=== PATIENT | female | born 1945 | race Caucasian/White ===

== ENCOUNTER 2022-11-20 13:02 | Oncology outpatient (recurring) (ONCR) | payer MEDICARE, MEDICAID, SELFPAY ==
--- NOTE | 2022-11-22 17:05 | N.ONRAD NP_ITS ---
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 Radiotherapy to date: Summary > No prior radiation therapy. Chief Complaint / History of Present Illness: She initially had itchiness in the vulvar region felt to be a yeast infection. Some improvement with topical treatment. Then developed an asymptomatic mass. Seen by Dr Mullins 10/02/2022 5-6 cm ulcerated lesion extending from right labia major up and over clitoral lucio and abutting the left labia minora. Punch biopsy obtained. (Results not yet sent ). PET/CT 10/06/2023 Increased activity level corresponding to soft tissue thickening involving the vulva. Bilateral inguinal adenopathy right 22 mm max size, left 11 mm max size c/w metastatic disease. Partial vulvectomy and bilateral inguinal LN dissection 10/24/2022. Pathology Site: superior vulva HPV independent poorly differentiated squamous cell carcinoma 4.5 cm maximal size. 12 m invasion. Involved peripheral margin at 9:00. 1 of 3 right and 2 of 7 left inguinal nodes involved. She is recovering well post operatively. She is slowing gaining her strength . She has not yet resumed her house work. However she still feels weak and tired. She would like another 3 to 4 weeks to continue her recovery before embarking on any additional treatment. Bowel and bladder function are good. Perineal discharge has nearly resolved. Current Medications: Lisinopril, meloxicam, omeprazole Allergies: NKDA Medical History: No history of collagen vascular disease. No previous radiation therapy. Surgical History: Family History: Brother with history of prostate cancer. Social History: 59 years. 4 children. Non-smoker and non-drinker. Lifelong goat farmer. Living independently with . Current Complaints / Review of Systems: . Vital Signs: Performed on 11/20/2022 2:35 PM BMI - 33.106 kg/m2 (high), Height - 62 in, Weight - 181.0 lbs, Temperature - 98 f, Pulse - 62 /min, Respiration - 18 /min, O2 Sat - 97 %, Pain - 0, Fatigue - 2 and BP - 149/ 85 mm(hg)(high/). Physical Exam: Alert in NAD. No cervical or supraclavicular adenopathy. Inguinal incisions well healed inguinal areas supple with no skin tensioning with no masses. Vulvar region closed with no skin tensioning and healing well. 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 Involved nodes and lateral margin. Agree with post op radiation to primary resection bed and inguinal and pelvic brissa regions. Plan on 50 resection bed and 40 to 45 Gy to brissa aponte with weekly CDDP. To simplify her treatment she would like chemo to be given here as well. We will ask Dr. Hoyt and his colleagues to assist with the administration of cisplatin. Signed by: 11/22/2022 5:03:03 PM <<Signature on File>> Time spent with patient: CPT Code: CPT Code:
== END 2022-12-01 23:59 | disposition home or self-care (01) ==
PROVIDERS: PCP Internal Medicine; Visit Provider Radiology Radiation Oncology
DX: C51.8 Malignant neoplasm of overlapping sites of vulva (principal); C77.4 Secondary and unspecified malignant neoplasm of inguinal and lower limb lymph nodes; Z53.9 Procedure and treatment not carried out, unspecified reason
CPT/HCPCS: 99205

== ENCOUNTER → 2023-01-17 09:13 | Day surgery (SDC) | payer MEDICARE, MEDICAID, SELFPAY ==
[2023-01-17 09:25] VITALS: BP 175/94; PULSE 92; RESP 18; TEMP 36.1; O2SAT 96; BMI 32.5
--- NOTE | 2023-01-17 10:58 | XR_ITS ---
WS: [id number] Exam: XR chest 1V portable [id number] Date/Time of Exam: 01/17/2023 11:02 AM Reason For Exam: post picc Exam: XR chest 1V portable [id number] Date/Time of Exam: 01/17/2023 11:02 AM Reason For Exam: post picc No priors. Right-sided PICC line has been placed and ends at the cavoatrial junction. The lungs are fully expand ed. No consolidating infiltrates. Unremarkable cardiomediastinal silhouette. No pleural effusions. Bladimir ny structures are intact. Degenerative change of the RIGHT shoulder. IMPRESSION: 1. No acute cardiopulmonary process. 2. Right-sided PICC line ending at the cavoatrial junction.
== END ==
PROVIDERS: PCP Family Medicine; Visit Provider Internal Medicine Medical Oncology
DX: Z45.2 Encounter for adjustment and management of vascular access device (principal)
CPT/HCPCS: 36573; 71045

== ENCOUNTER 2023-01-29 09:41 | Oncology outpatient (recurring) (ONCR) | payer MEDICARE, MEDICAID, SELFPAY ==
--- NOTE | 2023-01-17 08:56 | ONCRAD EPV_ITS ---
Radiation Oncology Established Patient Visit Patient: Naveed Scott [id number] : 1945> Age: 77> Sex: Female> Dictated by: Tyron Govea Date of Service: 01/15/2023 Referring Physician(s) : Corrine Gibbs MD Diagnosis: Vulva cancer, ST IIIB (T1B, N2B, M0) squamous cell carcinoma of the vulva s/p resection and inguinal LN dissection 10/24/2022 Radiotherapy to Date: none Current History: Currently doing well. Bowel and bladder function are good. Stools are slow and do occur daily. Energy improving. Active at home with daily chores. Still has a perineal yeast infection trated with Diflucan, Nystatin and now Mycelex. Current Medications: AmLODIPine Besylate, lidocaine-Prilocaine, lisinopril, meloxicam, omeprazole. Allergies: NKDA Current Complaints / Review of Systems: . Vital Signs: Performed on 01/15/2023 12:56 PM BMI - 32.63 kg/m2 (high), Height - 62 in, Weight - 178.4 lbs, Temperature - 98.1 f, Pulse - 72 /min, Respiration - 16 /min, O2 Sat - 97 %, Pain - 0, Fatigue - 6 and BP - 152/ 83 mm(hg)(high/). Physical Exam: General: Alert and oriented x 3. No acute distress. HEENT: Normocephalic, atraumatic. NECK: Supple without supraclavicular or jugular lymphadenopathy. ABDOMEN: Soft, nontender, nondistended without masses or organomegaly. Bowell sounds are present. EXTREMITIES: No peripheral edema is identified. Limited motor and sensory examination are grossly intact and symmetric bilaterally. Inguinal incisions well healed bilaterally. No underlying palpable adenopathy. Faint white coating over post operative vulvar surfaces. No visible incisions seen. No other mucosal lesions seen. Performance Status: 0 - 1 Lab: None pending. Pathology: see consult note. Imaging: see consult note Impression: Resected St IIIB (T1b, N2b, M0) squamous cell carcinoma vulva s/p resection. Involved peripheral 9 o???clock margin and bilateral inguinal lymph nodes. Agree with need for post operative radiation and chemo covering primary resection bed, inguinal and inferior pelvic brissa regions. Signed by: 01/17/2023 8:55:06 AM <<Signature on File>> Time spent with patient: CPT Code: CPT Code:
[2023-01-21 09:56] LABS: Basophils % 0.4 %; Eosinophils # 0.4 10^3/uL (0.0-0.8); Eosinophils % 5.6 %; Hematocrit 40.5 % (36-47); Lymphocytes # 1.3 10^3/uL (0.8-4.8); Lymphocytes % 19.8 %; Mean Corpuscular HGB Conc 32.8 g/dL (30-55); Mean Corpuscular Hemoglobin 30.3 pg (27-33); Mean Corpuscular Volume 92.3 fl (85-98); Mean Platelet Volume 9.7 fL (7.4-10.4); Monocytes # 0.6 10^3/uL (0.2-0.9); Monocytes % 9.5 %; Neutrophils # 4.35 10^3/uL (1.8-7.7); Neutrophils % 64.4 %; Nucleated Red Blood Cells % 0 %; Platelet Count 249 10^3/cmm (157-399); Red Blood Count 4.39 10^6/uL (3.85-5.65); Red Cell Distribution Width 13.3 % (12.1-15.1); White Blood Count 6.76 10^3/uL (3.29-11.43)
[2023-01-21 10:10] VITALS: BP 148/80; PULSE 86; O2SAT 99
[2023-01-21 10:11] LABS: Alanine Aminotransferase 12 U/L (0-33); Albumin Level 3.9 g/dL (3.5-5.2); Alkaline Phosphatase 71 U/L (35-105); Blood Urea Nitrogen 18 mg/dL (8-23); Calcium 9.4 mg/dL (8.5-10.5); Carbon Dioxide 26 mmol/L (22-29); Chloride 103 mmol/L (98-107); Globulin 3.5 g/dL (1.3-4.6); Glucose 107 mg/dL (65-115); Osmolality Calculated 290 mOsm/kg (285-295); Sodium 139 mmol/L (136-145); Total Bilirubin 0.5 mg/dL (0.15-1.2); Total Protein 7.4 g/dL (6.6-8.7)
[2023-01-21 10:32] LABS: Anion Gap 14.4 (5-19); Aspartate Amino Transferase 17 U/L (0-32); Potassium 4.4 mmol/L (3.5-5.1)
[2023-01-21] MEDS: sodium chloride 0.9% 250 ML 75 ML IV (11:32)
[2023-01-21] MEDS: diphenhydrAMINE 50 mg/mL SDV 1mL 25 MG IVP (11:34)
[2023-01-21] MEDS: famotidine 20 mg/2 mL INJ IVP (11:37)
[2023-01-21] MEDS: palonosetron 0.25 mg/5 mL SDV IVP (11:41)
[2023-01-21] MEDS: fosaprepitant 150 MG in sodium chloride 0.9% 150 ML 300 MG IV (11:43)
[2023-01-21] MEDS: OLANZapine 5 mg TABLET PO (11:45)
[2023-01-21] MEDS: FUROsemide 10 mg/mL SDV 2mL 20 MG IVP (14:03)
[2023-01-21] MEDS: potassium chloride 20 MEQ in sodium chloride 0.9% 500 ML 500 MEQ IV (14:08)
[2023-01-21 15:19] VITALS: BP 144/77; PULSE 88; TEMP 35.8; O2SAT 91
--- NOTE | 2023-01-23 10:54 | ONCRAD TMN_ITS ---
Radiation Oncology Weekly Treatment Management Patient: Naveed Carter MR#: [id number] : 1945> Attending Physician: Braulio Hernández Date of Service: 01/23/2023 Referring Physician(s) : Diagnosis: C51.8 - Malignant neoplasm of overlapping sites of vulva, Diagnosed 10/24/2022 (Active) Radiotherapy to date: Course: Pelvis 2022, Treatment Site: Pelvis 2022, Ref. ID: [id number], Energy: 15X, Dose/Fx (cGy): 190, #Fx: 3 / 25, Dose Correction (cGy): 0, Total Dose (cGy): 570, Start Date: 01/21/2023, Elapsed Days: 2 Reason for visit: The patient is being seen today as part of their regularly scheduled weekly on treatment visits to assess for acute toxicities from radiotherapy. Review of Systems: She has tolerated the first 3 treatments well. She has no complaints regarding the inguinal areas or vulvar area. No bladder dysfunction. Bowel movements are normal. No problems with pain. Her performance status has improved since she was originally seen. She does not describe any lymphedema, but she states her thighs have felt slightly puffy ever since surgery. Vital Signs: Performed on 01/23/2023 10:13 AM BMI - 33.069 kg/m2 (high), Height - 62 in, Weight - 180.8 lbs, Temperature - 97.2 f, Pulse - 60 /min, Respiration - 18 /min, O2 Sat - 94 % (low), Pain - 0, Fatigue - 0 and BP - 150/ 68 mm(hg)(high/). Physical Exam: Alert, oriented, no acute distress. No edema of the lower extremities. Imaging: Radiation therapy imaging related to accurate target localization (i.e. KV, MV and CBCT) was reviewed. Appropriate changes, if any, were made to ensure treatment accuracy. Plan: Continue treatment according to plan. She is receiving concomitant chemotherapy. She sees Dr. Gibbs in late March 2023. Signed by: Braulio Hernández 01/23/2023 10:53:05 AM
[2023-01-28 10:57] VITALS: BP 139/76; PULSE 74; RESP 16; TEMP 37.2; O2SAT 94
[2023-01-28 11:10] LABS: Basophils % 0.5 %; Eosinophils # 0.4 10^3/uL (0.0-0.8); Eosinophils % 5.1 %; Hematocrit 39.7 % (36-47); Lymphocytes # 1.3 10^3/uL (0.8-4.8); Lymphocytes % 15.3 %; Mean Corpuscular HGB Conc 32.5 g/dL (30-55); Mean Corpuscular Hemoglobin 30.4 pg (27-33); Mean Corpuscular Volume 93.6 fl (85-98); Mean Platelet Volume 9.8 fL (7.4-10.4); Monocytes # 0.7 10^3/uL (0.2-0.9); Monocytes % 8.4 %; Neutrophils % 69.8 %; Nucleated Red Blood Cells % 0 %; Platelet Count 251 10^3/cmm (157-399); Red Blood Count 4.24 10^6/uL (3.85-5.65); Red Cell Distribution Width 13.2 % (12.1-15.1); White Blood Count 8.17 10^3/uL (3.29-11.43)
[2023-01-28 11:32] LABS: Alanine Aminotransferase 12 U/L (0-33); Albumin Level 3.8 g/dL (3.5-5.2); Alkaline Phosphatase 67 U/L (35-105); Blood Urea Nitrogen 17 mg/dL (8-23); Calcium 9.2 mg/dL (8.5-10.5); Carbon Dioxide 27 mmol/L (22-29); Chloride 101 mmol/L (98-107); Creatinine Clr Calc Pharmacy 58.1739; Globulin 3.1 g/dL (1.3-4.6); Glucose 96 mg/dL (65-115); Osmolality Calculated 285 mOsm/kg (285-295); Sodium 137 mmol/L (136-145); Total Bilirubin 0.4 mg/dL (0.15-1.2); Total Protein 6.9 g/dL (6.6-8.7)
[2023-01-28 12:40] LABS: Anion Gap 13.2 (5-19); Aspartate Amino Transferase 16 U/L (0-32); Potassium 4.2 mmol/L (3.5-5.1)
[2023-01-28] MEDS: diphenhydrAMINE 50 mg/mL SDV 1mL 25 MG IVP (13:05)
[2023-01-28] MEDS: sodium chloride 0.9% 250 ML 75 ML IV (13:05)
[2023-01-28] MEDS: famotidine 20 mg/2 mL INJ IVP (13:09)
[2023-01-28] MEDS: palonosetron 0.25 mg/5 mL SDV IVP (13:12)
[2023-01-28] MEDS: OLANZapine 5 mg TABLET PO (13:14)
[2023-01-28] MEDS: fosaprepitant 150 MG in sodium chloride 0.9% 150 ML 300 MG IV (14:02)
[2023-01-28] MEDS: FUROsemide 10 mg/mL SDV 2mL 20 MG IVP (15:48)
[2023-01-28] MEDS: potassium chloride 20 MEQ in sodium chloride 0.9% 500 ML 500 MEQ IV (16:03)
[2023-01-28 17:02] VITALS: BP 146/87; PULSE 75; RESP 16; TEMP 36.5; O2SAT 95
--- NOTE | 2023-01-29 10:55 | ONCRAD TMN_ITS ---
Radiation Oncology Weekly Treatment Management Patient: Sonia Lucio MR#: [id number] : 1945 Attending Physician: Donis Chapman Date of Service: 01/29/2023 Referring Physician(s) : Malignant neoplasm of overlapping sites of vulva, diagnosed 10/24/2022 Diagnosis: C51.8 - Malignant neoplasm of overlapping sites of vulva, Diagnosed 10/24/2022 (Active) Radiotherapy to date: Course: Pelvis 2022, Treatment Site: Pelvis 2022, Ref. ID: [id number], Energy: 15X, Dose/Fx (cGy): 190, #Fx: , Dose Correction (cGy): 0, Total Dose (cGy): 950, Start Date: 01/21/2023, Elapsed Days: 8 Reason for visit: The patient is being seen today as part of their regularly scheduled weekly on treatment visits to assess for acute toxicities from radiotherapy. Review of Systems: Patient denies dysuria, urgency, or frequency. She has no complaints of diarrhea, constipation, or changes in her bowel habits. She is receiving chemotherapy and denies side effects of chemotherapy. Vital Signs: Performed on 01/29/2023 9:57 AM BMI - 32.996 kg/m2 (high), Height - 62 in, Weight - 180.4 lbs, Temperature - 98 f, Pulse - 73 /min, Respiration - 16 /min, O2 Sat - 99 %, Pain - 0, Fatigue - 0 and BP - 148/ 72 mm(hg)(high/). Physical Exam: Alert and oriented female appearing her stated age. Patient ambulatory without assistance. Imaging: Radiation therapy imaging related to accurate target localization (i.e. KV, MV and CBCT) was reviewed. Appropriate changes, if any, were made to ensure treatment accuracy. Plan: Continue prescribed radiation therapy. Patient is aware of the potential side effects and has been instructed to notify the therapist if she develops any changes in her urinary or bowel symptoms. Signed by: Donis Chapman 01/29/2023 10:54:55 AM
== END 2023-01-29 23:59 | disposition home or self-care (01) ==
PROVIDERS: Nurse Practitioner Family; PCP Internal Medicine; Visit Provider Radiology Radiation Oncology
DX: Z51.0 Encounter for antineoplastic radiation therapy (principal); C51.8 Malignant neoplasm of overlapping sites of vulva
CPT/HCPCS: 77300; 77301; 77334; 77338; 77386; 77417; 77470; 80053; 85025; 96366; 96367; 96375; 96413; 99024; 99215; J1100; J1200; J1453; J1642; J1940; J2469; J3475; J3480; J3490; J7030; J7040; J7050; J9060

== ENCOUNTER 2023-01-31 09:40 | Oncology outpatient (recurring) (ONCR) | payer MEDICARE, MEDICAID, SELFPAY | END 2023-01-31 23:59 | disposition home or self-care (01) | PROVIDERS: PCP Internal Medicine; Visit Provider Radiology Radiation Oncology | DX: Z51.0 Encounter for antineoplastic radiation therapy (principal); C51.8 Malignant neoplasm of overlapping sites of vulva | CPT/HCPCS: 77014; 77336; 77386 ==

== ENCOUNTER 2023-02-12 13:30 | Oncology outpatient (recurring) (ONCR) | payer MEDICARE, MEDICAID, SELFPAY ==
[2023-02-05 09:17] VITALS: BP 130/84; PULSE 88; O2SAT 96
[2023-02-05 09:49] LABS: Basophils % 0.5 %; Eosinophils # 0.1 10^3/uL (0.0-0.8); Eosinophils % 1.2 %; Hematocrit 36.5 % (36-47); Lymphocytes # 0.6 10^3/uL (0.8-4.8); Lymphocytes % 9.5 %; Mean Corpuscular HGB Conc 33.7 g/dL (30-55); Mean Corpuscular Hemoglobin 30.5 pg (27-33); Mean Corpuscular Volume 90.6 fl (85-98); Mean Platelet Volume 9.9 fL (7.4-10.4); Monocytes # 0.6 10^3/uL (0.2-0.9); Monocytes % 10.9 %; Neutrophils # 4.49 10^3/uL (1.8-7.7); Neutrophils % 77.4 %; Nucleated Red Blood Cells % 0 %; Platelet Count 156 10^3/cmm (157-399); Red Blood Count 4.03 10^6/uL (3.85-5.65); Red Cell Distribution Width 13.4 % (12.1-15.1)
[2023-02-05 10:06] LABS: Alanine Aminotransferase 39 U/L (0-33); Albumin Level 3.5 g/dL (3.5-5.2); Alkaline Phosphatase 85 U/L (35-105); Blood Urea Nitrogen 14 mg/dL (8-23); Calcium 8.8 mg/dL (8.5-10.5); Carbon Dioxide 30 mmol/L (22-29); Chloride 95 mmol/L (98-107); Globulin 3.5 g/dL (1.3-4.6); Glucose 122 mg/dL (65-115); Osmolality Calculated 286 mOsm/kg (285-295); Sodium 137 mmol/L (136-145)
[2023-02-05 10:08] LABS: Anion Gap 15.2 (5-19); Aspartate Amino Transferase 20 U/L (0-32); Potassium 3.2 mmol/L (3.5-5.1)
[2023-02-12 13:39] VITALS: BP 118/80; PULSE 96; RESP 16; TEMP 37; O2SAT 97
== END 2023-03-03 23:59 | disposition home or self-care (01) ==
PROVIDERS: Nurse Practitioner Family; PCP Internal Medicine; Visit Provider Radiology Radiation Oncology
DX: Z53.9 Procedure and treatment not carried out, unspecified reason
CPT/HCPCS: 36592; 80053; 85025; 99214

== ENCOUNTER 2023-04-30 08:46 | Outpatient (CLI) | payer MEDICARE, MEDICAID, SELFPAY ==
--- NOTE | 2023-04-30 12:24 | PETR_ITS ---
PROCEDURE INFORMATION: Exam: PET/CT Skull Base to Mid-thigh Exam date and time: 04/30/2023 10:00 AM Age: 77 years old Clinical indication: Condition or disease; Primary cancer: Vulvar cancer; Follow-up oncological assessment LABS AND CLINICAL REPORTS: Glucose: 116 mg/dl Treatment strategy for malignancy (PET staging): Restaging (PS) TECHNIQUE: Imaging protocol: Following at least four-hour fasting and following the injection of radiopharmaceutical, low dose CT images were obtained. Then, PET images were obtained. Attenuation corrected images were constructed using the CT scan. Fused images of PET and CT were reviewed. The standardized uptake values (SUV) reported below are maximum values within a region of interest, expressed in gm/ml. Exam includes orbital meatal line to mid-thigh. Radiopharmaceutical: 12.96 mCi F-18 FDG (Fluorodeoxyglucose), IV. Time of imaging post radiopharmaceutical administration: 1 hour Injection site: Right antecubital COMPARISON: PT PET Scan 10/05/2022 3:36 PM FINDINGS: Brain: Visualized brain has normal physiologic uptake. Pharynx: No abnormal uptake. Larynx: No abnormal uptake. Lungs, pleura and trachea: No abnormal uptake. Heart: Normal physiologic uptake. Mediastinal space: No abnormal uptake. Liver: No abnormal uptake. Gallbladder and bile ducts: No abnormal uptake. Pancreas: No abnormal uptake. Spleen: No abnormal uptake. Adrenal glands: No abnormal uptake. Kidneys and ureters: Normal physiologic uptake. Stomach and bowel: No abnormal uptake. Large hiatal hernia again noted. Vasculature: No abnormal uptake. Lymph nodes: A couple small lymph nodes noted adjacent to the right labia majora mass. The largest is located in the right inguinal region measuring 1.2 cm in short axis with an estimated max SUV of 5.5. Enlarged precarinal lymph node measuring 1.4 cm in short axis with a max SUV of 3.4. Partially calcified enlarged precarinal lymph node measuring up to 1.3 cm in short axis. Max SUV measures 3.2. Enlarged right hilar lymph node measuring 1.4 cm in short axis series 3, image 92 with a max SUV of 3.9. Bones/joints: No abnormal uptake in the visualized axial and appendicular skeleton. Soft tissues: Irregular spiculated mass in the right labia majora measuring 2.5 x 1.9 cm series 3, image 226. SUV max measures 8.4. PET/PET skulltothigh SUBSEQ [id number] IMPRESSION: 1. New right labia majora mass consistent with malignancy. 2. Metastatic adenopathy of some adjacent nodes in the right labia majora as well as a right inguinal node. 3. Additional enlarged mediastinal and right hilar lymph nodes with moderate to high FDG uptake raising suspicion for additional metastatic adenopathy.
== END 2023-04-30 08:47 | disposition home or self-care (01) ==
LOC: RAD 08:46
PROVIDERS: Visit Provider Obstetrics & Gynecology Gynecologic Oncology
DX: C51.9 Malignant neoplasm of vulva, unspecified (principal)
CPT/HCPCS: 78815; A9552

== ENCOUNTER → 2023-06-03 15:09 | Outpatient (BNVA) | payer MEDICARE, MEDICAID, SELFPAY | PROVIDERS: PCP Family Medicine; Referring Provider Obstetrics & Gynecology Gynecologic Oncology; Visit Provider Surgery | DX: C51.8 Malignant neoplasm of overlapping sites of vulva (principal) | CPT/HCPCS: 99204 ==

== ENCOUNTER 2023-06-10 05:46 | Day surgery (SDC) | payer MEDICARE, MEDICAID, SELFPAY ==
[2023-06-10] VITALS (7 sets, daily range): BP systolic 118–143; BP diastolic 61–85; PULSE 72–116; RESP 12–18; TEMP 36.4–36.9; O2SAT 92–97; BMI 30.2
[2023-06-10] MEDS: sodium chloride 0.9% 1,000 ML 30 ML IV (06:15)
--- NOTE | 2023-06-10 06:33 | XR_ITS ---
WS: [id number] PORTABLE CHEST HISTORY: Postop mediport COMPARISON: 01/17/2023 LEFT Mediport with tip in the caval atrial junction. No complications. No pneumothorax is identified. Mild chronic appearing interstitial thickening throughout both lungs but greatest on the LEFT. No con solidation. No mass. No pleural effusion or pneumothorax. Cardiac size: Normal. Mediastinum/Aorta: Mild atherosclerosis aorta. No osseous abnormality seen. IMPRESSION: Satisfactory postop imaging LEFT Mediport placement. No complications.
--- NOTE | 2023-06-10 06:33 | SC_ITS ---
WS: [id number] C-ARM RADIOGRAPHS CHEST; 3 IMAGES HISTORY: Mediport COMPARISON: None available. Intraoperative imaging during Mediport placement. Mediport projects over the LEFT upper thorax. Tip e xtends across the midline and lower overlies the spine. Patient is rotated. IMPRESSION: Intraoperative imaging during Mediport placement.
--- NOTE | 2023-06-10 06:35 | W.PM.OPSUD ---
Surgery/Procedure H&P Update DATE OF PROCEDURE: June 10, 2023 DATE H&P PERFORMED: 06/03/23 H&P UPDATE INFORMATION: I have reviewed H&P completed within last 30 days, I have examined patient prior to procedure and No changes to prior documentation PLANNED PROCEDURE: Operation Date: 06/10/23 07:00 Proposed Procedures p Portacath Placement(Not Applicable) - Mahad Wallace DO
--- NOTE | 2023-06-10 06:44 | ANES.PREANE2 ---
Pre-Anesthetic Assessment Height/Weight: Height 1.57 m Weight 74.843 kg Temp Pulse Resp BP Pulse Ox O2 Del Method 97.8 F 116 H 18 123/81 93 Room Air 06/10/23 06:03 06/10/23 06:03 06/10/23 06:03 06/10/23 06:03 06/10/23 06:03 06/10/23 06:03 Operation Date: 06/10/23 07:00 Proposed Procedures p Portacath Placement(Not Applicable) - Mahad Wallace DO Familial anesthetic complications: None Was Beta Seda taken within 24 hours: N/A Was Clonidine taken within 24 hours: N/A Last intake: Intake Last Liquid Date 06/09/23 Last Liquid Time 00:00 Last Solid Date 06/09/23 Last Solid Time 00:00 Social No alcohol and No tobacco Exam alert, oriented x 3, clear to auscultation bilaterally and regular rate & rhythm Airway Mallampati: Class I Dentition: false CV/HEM Hypertension GI Gastroesophageal Reflux Disease (well controlled) Anesthetic Plan ASA status: 3 Anesthesia: MAC Risk of > 500 ml blood loss (7ml/kg in children): No Medications/Allergies Home Medications Medication Instructions Recorded Confirmed Last Taken Type amlodipine 10 mg tablet 10 mg PO DAILY 09/19/22 06/10/23 06/10/23 History lisinopril 10 mg tablet 10 mg PO DAILY 09/19/22 06/07/23 06/07/23 History omeprazole 10 mg capsule,delayed 10 mg PO DAILY 09/19/22 06/10/23 06/10/23 History release Lactobacillus acidophilus 10 mg PO DAILY 01/14/23 06/10/23 06/09/23 History (Acidophilus capsule) acetaminophen 325 mg capsule 325 mg PO QID PRN Pain 01/14/23 06/07/23 06/06/23 History aspirin 325 mg tablet 325 mg PO DAILY 01/14/23 06/07/23 06/06/23 History lorazepam 1 mg tablet 0.5 - 1 mg (0.5 - 1 x 1 mg) PO Q6H 01/21/23 06/10/23 06/09/23 Rx PRN Severe Nausea #30 tabs prochlorperazine maleate 10 mg 10 mg PO Q4H PRN Mild Nausea #30 01/21/23 06/07/23 Unknown Rx tablet (Compazine) tabs oxycodone 5 mg tablet 5 mg PO Q4H PRN Pain 06/07/23 06/10/23 06/09/23 History Allergies Allergy/AdvReac Type Severity Reaction Status Date / Time No Known Allergies Allergy Verified 06/03/23 15:11 Current Medications Generic Name Dose Route Start Last Admin Trade Name Freq PRN Reason Stop Dose Admin Sodium Chloride 1,000 mls @ 30 mls/hr 06/10/23 06:00 06/10/23 06:15 Sodium Chloride 0.9% IV 30 mls/hr .Q24H EVELIN Administration PFSH Anesthesia Medical History History of depression Degenerative arthritis GERD (gastroesophageal reflux disease) Hypertension Vulvar malignant neoplasm Surgical History History of vulvectomy (10/24/22) Radical vulvectomy with bilateral inguinofemoral lymphadenectomy History of neck surgery drainage of abscess Family History Mother Hypertension Sister Parkinson disease Father Heart disease Brother Prostate cancer Denies family history of Colon cancer Ovarian cancer Diabetes Hyperlipidemia Breast cancer Uterine cancer Thyroid disease Stroke Social History Smoking and tobacco/nicotine status: never used tobacco/nicotine Alcohol intake: never Data Anesthesia Cardiac Studies: No Data to Display
[2023-06-10] MEDS: ceFAZolin 2,000 MG in sodium chloride 0.9% (plus) 50 ML 100 MG IV (07:02)
[2023-06-10] MEDS: heparin, porcine 1,000 unit/mL INJ 10 mL 10000 UNIT IRRIGATION (07:27)
[2023-06-10] MEDS: lidocaine-epi 2% PF 1:200,000 20 mL SDV XX (07:30)
--- NOTE | 2023-06-10 07:53 | P.OP_ITS ---
Operative Report Date of procedure: June 10, 2023 Pre-op diagnosis: Vulvar cancer Post-op diagnosis: same Procedure done: Mediport placement Intraoperative interpretation of fluoroscopy Implants: PowerPort Specimens removed/disposition: None Surgeon: Mahad Wallace DO Anesthesia: MAC and Local Estimated blood loss (mL): 5 Complications: None apparent Brief History: This very pleasant 77-year-old female who presented my office with a diagnosis of vulvar cancer. Oncology requested Mediport placement for chemotherapy access. The risk and benefits were explained and documented. Procedure: They put another order I will do right now things the patient was taken to the operating room and placed supine on the operating room table. All bony prominences were padded. She was given IV sedation and monitored throughout the case by the anesthesia personnel. SCDs were placed and turned on. The arms were tucked to the side. Patient received Ancef 2 g preoperatively IV. The bilateral chest wall was prepped and draped in usual sterile fashion using chlorhexidine b ase prep. Sterile drapes were applied. We did procedure pause prior to beginning. An 18 gauge needle was placed in the left subclavian vein. Dark, nonpulsatile blood was aspirated. A guidewire was placed through the needle centrally toward the atrial/vena caval junction. Fluoroscopy visualized good placement. The needle was removed and the guidewire was clipped to the drape with a hemostat. Further local anesthetic was infiltrated in the soft tissues of the left chest wall and a #15 blade was used to make a horizontal skin incision. A subcutaneous Mediport pocket was created using Bovie cautery, dissecting down through the skin and subcutaneous tissues. Meticulous hemostasis was achieved. The Mediport was sutured in position using 3-0 vicryl suture x2 stitches. A #15 blade was used to make a small skin keya around the guidewire insertion area. The Mediport tubing was tunneled through the subcutaneous tissues up to the needle insertion location. A dilator with a peel-away sheath was placed over the guidewire and placed centrally. After measuring the Mediport tubing was cut to length so that the tip would end at the atrial/vena caval junction. The inner cannula and the guidewire were removed, leaving the dilator sheath in place. The Mediport was flushed. The tip of the catheter was inserted through the peel-away sheath and the peel-away sheath removed in the standard fashion. The Mediport was accessed with a straight [place] needle and dark, nonpulsatile blood was aspirated and flushed using heparinized saline to hep-lock the Mediport. Final fluoroscopy visualization showed no kink in the catheter and the tip of the Mediport tubing near the atrial/vena caval junction. There was no obvious pneumothorax. Both skin incisions were thoroughly irrigated and suctioned dry. Meticulous hemostasis noted. The dermis was approximated with 3-0 Vicryl in an interrupted fashion. Skin was closed with Dermabond. Patient was awakened from anesthesia and transferred via her cart to the recovery room in stable condition. All needle, sponge, and instrument counts were correct per the operating personnel x2 counts.
[2023-06-10] MEDS: oxyCODONE 5 mg IR Tab/Cap PO (08:20)
--- NOTE | 2023-06-10 08:50 | ANE.PACU2 ---
Inpatient post-anesthesia follow up: Airway intact: Yes Vital signs: Temperature 97.5 F Pulse Rate 72 Respiratory Rate 16 Blood Pressure 141/76 Pulse Oximetry 93 Oxygen Delivery Me thod Room Air Oxygen Flow Rate Fraction of Inspir ed Oxygen Hydration adequate: Yes Nausea and vomiting: No Pain level: 1 Mental status: Baseline
== END 2023-06-10 08:50 | disposition home or self-care (01) ==
PROVIDERS: PCP Family Medicine; Visit Provider Surgery
PROC: (CPT 36561; principal; 2023-06-10 07:00)
DX: C51.9 Malignant neoplasm of vulva, unspecified (principal); I10 Essential (primary) hypertension; K21.9 Gastro-esophageal reflux disease without esophagitis
CPT/HCPCS: 36561; 71045; 76000; 77001; C1788; J0690; J1644; J2371; J2704; J3010; J7030

== ENCOUNTER 2023-08-01 16:10 | Oncology outpatient (recurring) (ONCR) | payer MEDICARE, MEDICAID, SELFPAY | END 2023-08-02 23:59 | disposition home or self-care (01) | LOC: ONCMED 16:11 | PROVIDERS: PCP Family Medicine; Visit Provider Radiology Radiation Oncology | DX: C51.8 Malignant neoplasm of overlapping sites of vulva (principal); Z92.3 Personal history of irradiation; C77.4 Secondary and unspecified malignant neoplasm of inguinal and lower limb lymph nodes; Z79.899 Other long term (current) drug therapy | CPT/HCPCS: 99214 ==

== ENCOUNTER 2023-08-27 07:41 | Oncology outpatient (recurring) (ONCR) | payer MEDICARE, MEDICAID, SELFPAY ==
[2023-08-06 11:29] LABS: Basophils % 0.3 %; Eosinophils % 0.6 %; Hematocrit 28.4 % (36-47); Lymphocytes # 0.5 10^3/uL (0.8-4.8); Lymphocytes % 14.7 %; Mean Corpuscular Hemoglobin 30.3 pg (27-33); Mean Corpuscular Volume 94.7 fl (85-98); Mean Platelet Volume 9.1 fL (7.4-10.4); Monocytes # 0.4 10^3/uL (0.2-0.9); Monocytes % 12.2 %; Neutrophils # 2.54 10^3/uL (1.8-7.7); Neutrophils % 71.9 %; Nucleated Red Blood Cells % 0 %; Platelet Count 184 10^3/cmm (157-399); Red Cell Distribution Width 17.1 % (12.1-15.1); White Blood Count 3.53 10^3/uL (3.29-11.43)
[2023-08-06] MEDS: alteplase 1 mg/mL SDV 2 mL 2 MG INTRACATH (11:33)
[2023-08-06 11:46] LABS: Alanine Aminotransferase 18 U/L (0-33); Albumin Level 3.6 g/dL (3.5-5.2); Alkaline Phosphatase 62 U/L (35-105); Anion Gap 13.3 (5-19); Aspartate Amino Transferase 18 U/L (0-32); Blood Urea Nitrogen 10 mg/dL (8-23); Calcium 8.4 mg/dL (8.5-10.5); Carbon Dioxide 28 mmol/L (22-29); Chloride 96 mmol/L (98-107); Globulin 3.5 g/dL (1.3-4.6); Glucose 109 mg/dL (65-115); Osmolality Calculated 278 mOsm/kg (285-295); Potassium 3.3 mmol/L (3.5-5.1); Sodium 134 mmol/L (136-145); Total Bilirubin 0.8 mg/dL (0.15-1.2); Total Protein 7.1 g/dL (6.6-8.7)
[2023-08-06] MEDS: HYDROmorphone 1 mg/mL INJ 1 mL 2 MG SUBCUT (11:48)
[2023-08-06 12:04] VITALS: BP 111/71; PULSE 86; O2SAT 93
[2023-08-06] MEDS: sodium chloride 0.9% 250 ML 75 ML IV (13:02)
[2023-08-06] MEDS: acetaminophen 325 mg Tablet 650 MG PO (13:02)
[2023-08-06] MEDS: diphenhydrAMINE 50 mg/mL SDV 1mL 25 MG IVP (13:05)
[2023-08-06] MEDS: famotidine 20 mg/2 mL INJ IVP (13:09)
[2023-08-06] MEDS: palonosetron 0.25 mg/5 mL SDV IVP (13:13)
[2023-08-06] MEDS: dexamethasone 20 MG in sodium chloride 0.9% 50 ML 188 MG IV (13:18)
[2023-08-06] MEDS: [UNRECOGNIZED DRUG - REMARK] 273.329999999999984 MG IV (13:49)
[2023-08-06] MEDS: CARBOplatin 260 MG in sodium chloride 0.9% 500 ML 526 MG IV (15:01)
[2023-08-06 16:38] VITALS: BP 128/76; PULSE 79; RESP 16; TEMP 36.5; O2SAT 93
[2023-08-13 08:14] VITALS: BP 117/72; PULSE 87; RESP 16; TEMP 35.9; O2SAT 94
[2023-08-13] MEDS: alteplase 1 mg/mL SDV 2 mL 2 MG INTRACATH (08:30)
[2023-08-13 08:44] LABS: Basophils % 0.3 %; Eosinophils % 0.7 %; Lymphocytes # 0.4 10^3/uL (0.8-4.8); Lymphocytes % 11.8 %; Mean Corpuscular HGB Conc 33.2 g/dL (30-55); Mean Corpuscular Hemoglobin 30.4 pg (27-33); Mean Corpuscular Volume 91.6 fl (85-98); Monocytes # 0.2 10^3/uL (0.2-0.9); Monocytes % 7.9 %; Neutrophils # 2.38 10^3/uL (1.8-7.7); Neutrophils % 78.3 %; Nucleated Red Blood Cells % 0 %; Platelet Count 174 10^3/cmm (157-399); Red Blood Count 2.73 10^6/uL (3.85-5.65); Red Cell Distribution Width 16.4 % (12.1-15.1); White Blood Count 3.04 10^3/uL (3.29-11.43)
[2023-08-13 09:03] LABS: Alanine Aminotransferase 17 U/L (0-33); Albumin Level 3.7 g/dL (3.5-5.2); Alkaline Phosphatase 58 U/L (35-105); Anion Gap 11.3 (5-19); Aspartate Amino Transferase 18 U/L (0-32); Blood Urea Nitrogen 12 mg/dL (8-23); Calcium 9.2 mg/dL (8.5-10.5); Carbon Dioxide 32 mmol/L (22-29); Chloride 89 mmol/L (98-107); Globulin 3.3 g/dL (1.3-4.6); Glucose 125 mg/dL (65-115); Osmolality Calculated 269 mOsm/kg (285-295); Potassium 3.3 mmol/L (3.5-5.1); Sodium 129 mmol/L (136-145); Total Bilirubin 0.5 mg/dL (0.15-1.2)
[2023-08-13 09:45] VITALS: BP 124/68; PULSE 71; RESP 18; TEMP 36.6; O2SAT 98
[2023-08-20 08:07] VITALS: BP 117/76; PULSE 88; RESP 17; TEMP 36.1; O2SAT 98
[2023-08-20 08:11] LABS: Basophils % 0.3 %; Eosinophils % 1.3 %; Hematocrit 26.5 % (36-47); Lymphocytes # 0.9 10^3/uL (0.8-4.8); Lymphocytes % 30.7 %; Mean Corpuscular HGB Conc 31.7 g/dL (30-55); Mean Corpuscular Hemoglobin 30.3 pg (27-33); Mean Corpuscular Volume 95.7 fl (85-98); Mean Platelet Volume 8.6 fL (7.4-10.4); Monocytes # 0.6 10^3/uL (0.2-0.9); Monocytes % 18.8 %; Neutrophils # 1.44 10^3/uL (1.8-7.7); Neutrophils % 47.6 %; Nucleated Red Blood Cells % 0 %; Platelet Count 168 10^3/cmm (157-399); Red Blood Count 2.77 10^6/uL (3.85-5.65); Red Cell Distribution Width 17.9 % (12.1-15.1); White Blood Count 3.03 10^3/uL (3.29-11.43)
[2023-08-20 08:26] LABS: Alanine Aminotransferase 12 U/L (0-33); Albumin Level 3.7 g/dL (3.5-5.2); Alkaline Phosphatase 51 U/L (35-105); Anion Gap 15.8 (5-19); Aspartate Amino Transferase 15 U/L (0-32); Blood Urea Nitrogen 11 mg/dL (8-23); Calcium 9.2 mg/dL (8.5-10.5); Carbon Dioxide 26 mmol/L (22-29); Chloride 97 mmol/L (98-107); Creatinine Clr Calc Pharmacy 53.5857; Globulin 3.2 g/dL (1.3-4.6); Glucose 94 mg/dL (65-115); Osmolality Calculated 279 mOsm/kg (285-295); Potassium 3.8 mmol/L (3.5-5.1); Sodium 135 mmol/L (136-145); Total Bilirubin 0.5 mg/dL (0.15-1.2); Total Protein 6.9 g/dL (6.6-8.7)
[2023-08-27 08:17] LABS: Basophils % 0.3 %; Eosinophils % 0.2 %; Hematocrit 30.6 % (36-47); Lymphocytes # 1.1 10^3/uL (0.8-4.8); Mean Corpuscular HGB Conc 31.7 g/dL (30-55); Mean Corpuscular Hemoglobin 30.7 pg (27-33); Mean Corpuscular Volume 96.8 fl (85-98); Mean Platelet Volume 9.4 fL (7.4-10.4); Monocytes % 9.8 %; Neutrophils # 7.66 10^3/uL (1.8-7.7); Neutrophils % 78.2 %; Nucleated Red Blood Cells % 0 %; Platelet Count 164 10^3/cmm (157-399); Red Blood Count 3.16 10^6/uL (3.85-5.65)
[2023-08-27 08:36] LABS: Alanine Aminotransferase 18 U/L (0-33); Alkaline Phosphatase 51 U/L (35-105); Anion Gap 17.7 (5-19); Aspartate Amino Transferase 18 U/L (0-32); Blood Urea Nitrogen 18 mg/dL (8-23); Calcium 9.6 mg/dL (8.5-10.5); Carbon Dioxide 24 mmol/L (22-29); Chloride 95 mmol/L (98-107); Creatinine Clr Calc Pharmacy 53.9758; Globulin 3.4 g/dL (1.3-4.6); Glucose 102 mg/dL (65-115); Osmolality Calculated 278 mOsm/kg (285-295); Potassium 3.7 mmol/L (3.5-5.1); Sodium 133 mmol/L (136-145); Total Bilirubin 0.8 mg/dL (0.15-1.2); Total Protein 7.4 g/dL (6.6-8.7)
[2023-08-27] MEDS: acetaminophen 325 mg Tablet 650 MG PO (09:51)
[2023-08-27] MEDS: sodium chloride 0.9% 250 ML 75 ML IV (10:04)
[2023-08-27] MEDS: diphenhydrAMINE 50 mg/mL SDV 1mL 25 MG IVP (10:05)
[2023-08-27] MEDS: famotidine 20 mg/2 mL INJ IVP (10:09)
[2023-08-27] MEDS: palonosetron 0.25 mg/5 mL SDV IVP (10:11)
[2023-08-27] MEDS: dexamethasone 20 MG in sodium chloride 0.9% 50 ML 188 MG IV (10:15)
[2023-08-27] MEDS: [UNRECOGNIZED DRUG - REMARK] 273.329999999999984 MG IV (10:54)
[2023-08-27] MEDS: CARBOplatin 200 MG in sodium chloride 0.9% 500 ML 520 MG IV (12:13)
[2023-08-27 12:41] VITALS: RESP 18
[2023-08-27] MEDS: oxyCODONE 5 mg IR Tab/Cap 10 MG PO (12:41)
[2023-08-27 13:57] LABS: Specific Gravity, Urine 1.005 (1.005-1.030); Urine Appearance Cloudy (CLEAR); Urine Color Yellow (Yellow); pH Urine 6 (5-7)
[2023-08-27 13:58] LABS: Add Urine Culture? Yes; Bacteria Urine 2+ /hpf; Bilirubin Urine Neg (Negative); Blood Urine 3+ (Negative); Glucose Urine UA Norm (Normal); Ketones Urine Negative (Negative); Leukocyte Esterase Urine 2+ (Negative); Nitrate Urine Positive (Negative); Protein Urine 1+ (Negative); RBC Urine 0-4 /hpf (0-2); Squamous Epithelial Cell Urine 0-4 /hpf (0-5); Urobilinogen Urine Norm (Negative); WBC Urine >100 /hpf (0-5)
[2023-08-27 14:00] VITALS: BP 124/68; PULSE 74; RESP 17; TEMP 36.6; O2SAT 97
== END 2023-09-01 23:59 | disposition home or self-care (01) ==
PROVIDERS: Internal Medicine; Internal Medicine Medical Oncology; Nurse Practitioner Family; PCP Family Medicine; Visit Provider Radiology Radiation Oncology
DX: C51.8 Malignant neoplasm of overlapping sites of vulva (principal); Z53.9 Procedure and treatment not carried out, unspecified reason; Z51.11 Encounter for antineoplastic chemotherapy; Z51.12 Encounter for antineoplastic immunotherapy; Z79.899 Other long term (current) drug therapy; Z79.52 Long term (current) use of systemic steroids; R35.0 Frequency of micturition
CPT/HCPCS: 36415; 36593; 80053; 81001; 85025; 87077; 87086; 87186; 96367; 96372; 96375; 96413; 96417; 99214; J1100; J1170; J1200; J2469; J2997; J3490; J7040; J7050; J9045; J9267

== ENCOUNTER 2023-09-17 07:45 | Oncology outpatient (recurring) (ONCR) | payer MEDICARE, MEDICAID, SELFPAY ==
[2023-09-03] VITALS (11 sets, daily range): BP systolic 106–136; BP diastolic 71–80; PULSE 68–88; RESP 16–17; TEMP 35.7–36.7; O2SAT 95–98
[2023-09-03 08:22] LABS: Basophils % 0.3 %; Eosinophils # 0.1 10^3/uL (0.0-0.8); Eosinophils % 3.2 %; Lymphocytes # 0.8 10^3/uL (0.8-4.8); Lymphocytes % 22.8 %; Mean Corpuscular HGB Conc 32.1 g/dL (30-55); Mean Corpuscular Hemoglobin 31.2 pg (27-33); Mean Corpuscular Volume 97.2 fl (85-98); Mean Platelet Volume 9.7 fL (7.4-10.4); Monocytes # 0.1 10^3/uL (0.2-0.9); Neutrophils # 2.39 10^3/uL (1.8-7.7); Neutrophils % 69.1 %; Nucleated Red Blood Cells % 0 %; Platelet Count 105 10^3/cmm (157-399); Red Blood Count 2.47 10^6/uL (3.85-5.65); Red Cell Distribution Width 16.9 % (12.1-15.1); White Blood Count 3.46 10^3/uL (3.29-11.43)
[2023-09-03 08:40] LABS: Alanine Aminotransferase 86 U/L (0-33); Albumin Level 3.6 g/dL (3.5-5.2); Alkaline Phosphatase 42 U/L (35-105); Anion Gap 15.5 (5-19); Aspartate Amino Transferase 53 U/L (0-32); Blood Urea Nitrogen 16 mg/dL (8-23); Calcium 8.9 mg/dL (8.5-10.5); Carbon Dioxide 25 mmol/L (22-29); Chloride 97 mmol/L (98-107); Globulin 3.3 g/dL (1.3-4.6); Glucose 94 mg/dL (65-115); Osmolality Calculated 279 mOsm/kg (285-295); Potassium 3.5 mmol/L (3.5-5.1); Sodium 134 mmol/L (136-145); Total Bilirubin 0.8 mg/dL (0.15-1.2); Total Protein 6.9 g/dL (6.6-8.7)
[2023-09-03] MEDS: acetaminophen 325 mg Tablet 650 MG PO (10:16)
[2023-09-03] MEDS: diphenhydrAMINE 25 mg Capsule PO (10:17)
[2023-09-03] MEDS: sodium chloride 0.9% 250 mL Bag IV (10:22)
[2023-09-03] MEDS: FUROsemide 10 mg/mL SDV 2mL 20 MG IVP (12:41)
[2023-09-10 08:30] VITALS: BP 120/78; PULSE 78; RESP 18; TEMP 36.6; O2SAT 98
[2023-09-10] MEDS: alteplase 1 mg/mL SDV 2 mL 2 MG INTRACATH (08:30)
[2023-09-10 08:47] LABS: Basophils % 0.5 %; Eosinophils % 1.6 %; Hematocrit 31.6 % (36-47); Lymphocytes # 0.7 10^3/uL (0.8-4.8); Lymphocytes % 39.8 %; Mean Corpuscular HGB Conc 32.6 g/dL (30-55); Mean Corpuscular Hemoglobin 31.6 pg (27-33); Mean Corpuscular Volume 96.9 fl (85-98); Monocytes # 0.4 10^3/uL (0.2-0.9); Monocytes % 21.5 %; Neutrophils % 35.5 %; Nucleated Red Blood Cells % 0 %; Platelet Count 200 10^3/cmm (157-399); Red Blood Count 3.26 10^6/uL (3.85-5.65); Red Cell Distribution Width 15.6 % (12.1-15.1); White Blood Count 1.86 10^3/uL (3.29-11.43)
[2023-09-10 08:59] LABS: Alanine Aminotransferase 26 U/L (0-33); Albumin Level 3.8 g/dL (3.5-5.2); Alkaline Phosphatase 67 U/L (35-105); Anion Gap 15.6 (5-19); Aspartate Amino Transferase 20 U/L (0-32); Blood Urea Nitrogen 15 mg/dL (8-23); Calcium 9.4 mg/dL (8.5-10.5); Carbon Dioxide 26 mmol/L (22-29); Chloride 93 mmol/L (98-107); Creatinine Clr Calc Pharmacy 54.0918; Globulin 3.4 g/dL (1.3-4.6); Glucose 97 mg/dL (65-115); Osmolality Calculated 273 mOsm/kg (285-295); Potassium 3.6 mmol/L (3.5-5.1); Sodium 131 mmol/L (136-145); Total Bilirubin 0.5 mg/dL (0.15-1.2); Total Protein 7.2 g/dL (6.6-8.7)
[2023-09-10 09:03] LABS: Neutrophils # 0.66 10^3/uL (1.8-7.7)
[2023-09-10 10:50] VITALS: BP 142/78; PULSE 78; RESP 18; TEMP 36.6; O2SAT 98
[2023-09-17 08:22] LABS: Basophils % 0.3 %; Eosinophils % 0.1 %; Hematocrit 31.1 % (36-47); Lymphocytes # 1.1 10^3/uL (0.8-4.8); Lymphocytes % 16.2 %; Mean Corpuscular HGB Conc 32.8 g/dL (30-55); Mean Corpuscular Hemoglobin 31.3 pg (27-33); Mean Corpuscular Volume 95.4 fl (85-98); Mean Platelet Volume 8.5 fL (7.4-10.4); Monocytes # 0.8 10^3/uL (0.2-0.9); Monocytes % 11.4 %; Neutrophils # 4.85 10^3/uL (1.8-7.7); Neutrophils % 70.4 %; Nucleated Red Blood Cells % 0 %; Platelet Count 273 10^3/cmm (157-399); Red Blood Count 3.26 10^6/uL (3.85-5.65); Red Cell Distribution Width 15.1 % (12.1-15.1)
[2023-09-17 08:35] VITALS: BP 114/78; PULSE 84; RESP 17; TEMP 36.6; O2SAT 98
[2023-09-17 08:42] LABS: Alanine Aminotransferase 10 U/L (0-33); Albumin Level 3.7 g/dL (3.5-5.2); Alkaline Phosphatase 57 U/L (35-105); Anion Gap 19.5 (5-19); Aspartate Amino Transferase 11 U/L (0-32); Blood Urea Nitrogen 13 mg/dL (8-23); Calcium 9.6 mg/dL (8.5-10.5); Carbon Dioxide 23 mmol/L (22-29); Chloride 93 mmol/L (98-107); Creatinine Clr Calc Pharmacy 54.0918; Globulin 3.7 g/dL (1.3-4.6); Glucose 98 mg/dL (65-115); Osmolality Calculated 274 mOsm/kg (285-295); Potassium 3.5 mmol/L (3.5-5.1); Sodium 132 mmol/L (136-145); Total Bilirubin 0.6 mg/dL (0.15-1.2); Total Protein 7.4 g/dL (6.6-8.7)
[2023-09-17] MEDS: acetaminophen 325 mg Tablet 650 MG PO (09:48)
[2023-09-17] MEDS: sodium chloride 0.9% 250 ML 75 ML IV (09:50)
[2023-09-17] MEDS: diphenhydrAMINE 50 mg/mL SDV 1mL 25 MG IVP (09:53)
[2023-09-17] MEDS: palonosetron 0.25 mg/5 mL SDV IVP (09:57)
[2023-09-17] MEDS: famotidine 20 mg/2 mL INJ IVP (10:02)
[2023-09-17] MEDS: dexamethasone 20 MG in sodium chloride 0.9% 50 ML 188 MG IV (10:08)
[2023-09-17] MEDS: [UNRECOGNIZED DRUG - REMARK] 273.33 MG IV (11:09)
[2023-09-17] MEDS: CARBOplatin 200 MG in sodium chloride 0.9% 500 ML 520 MG IV (12:22)
[2023-09-17 14:08] VITALS: BP 129/78; PULSE 86; RESP 17; TEMP 36.6; O2SAT 95
== END 2023-10-02 23:59 | disposition home or self-care (01) ==
PROVIDERS: Internal Medicine Medical Oncology; Nurse Practitioner Family; PCP Family Medicine; Visit Provider Radiology Radiation Oncology
DX: C51.8 Malignant neoplasm of overlapping sites of vulva (principal); Z53.9 Procedure and treatment not carried out, unspecified reason; Z51.11 Encounter for antineoplastic chemotherapy; Z79.52 Long term (current) use of systemic steroids; Z79.899 Other long term (current) drug therapy
CPT/HCPCS: 36430; 36593; 80053; 85025; 86850; 86900; 86920; 96367; 96375; 96409; 96413; 99214; J1100; J1200; J1940; J2469; J2997; J3490; J7040; J7050; J9045; J9267; P9016

== ENCOUNTER 2023-10-07 09:41 | Emergency (ER) | payer MEDICARE, MEDICAID, SELFPAY ==
[2023-10-07] VITALS (9 sets, daily range): BP systolic 106–147; BP diastolic 65–82; PULSE 83–113; RESP 14; TEMP 36.8; O2SAT 95–99; BMI 25.6
--- NOTE | 2023-10-07 11:32 | CT_ITS ---
WS: [id number] CT FACIAL BONES HISTORY: trauma TECHNIQUE: Images obtained from the supraorbital location through the mandible. Soft tissue and bone windows are reviewed. Coronal and sagittal reformats have also been submitted. DLP: 2513.[address] scans at [facility] use at least one of these dose optimization techniques: automated e xposure control; mA and/or kV adjustment per patient size (includes targeted exams where dose is matc hed to clinical indication); or iterative reconstruction. COMPARISON: None available. No facial bone fracture. Nasal bones are intact. Zygomatic arches are normal. Mandibular condyles are intact. Orbits and globes are negative. Visualized upper cervical spine is negative for fracture. Pa rtial fusion across the LEFT C2-3 facet joint. Mild frothy secretions in the LEFT sphenoid sinus. CT/CT facial bones wo con* [id number] IMPRESSION: No acute facial bone fracture.
--- NOTE | 2023-10-07 11:32 | ECG_ITS ---
[facility] Test Date: 2023-10-07 Pat Name: Sonia Lucio Department: Room: Gender: Female Special Certificate Dictator: : 1945 Requested By: Darron Velasco Order Number: [id number] Vannessa MD: Kaden Foster M.D. Measurements Intervals [place] Rate: 99 P: 62 TN: 158 QRS: -69 QRSD: 75 T: 62 QT: 328 QTc: 422 Interpretive Statements SINUS RHYTHM POSSIBLE ANTERIOR MYOCARDIAL INFARCTION , OF INDETERMINATE AGE [30 ms Q WAVE IN V3/V4, OR R < 0.2 mV IN V4] INFERIOR MYOCARDIAL INFARCTION , PROBABLY OLD [40+ ms Q WAVE AND/OR ST/T ABNORMALITY IN II/aVF] No previous ECG available for comparison Electronically Signed On 10-07-2023 14:11:12 CDT by Kaden Foster M.D. [email or web address]
--- NOTE | 2023-10-07 11:32 | CT_ITS ---
WS: [id number] CT HEAD NONCONTRAST HISTORY: falls TECHNIQUE: Contiguous axial imaging performed through the brain in 2.5 mm imaging. Bone and soft tiss ue windows. Sagittal and coronal reformats reviewed. All CT scans at [facility] use at least one of these dose optimization techniques: automated exposure control; mA and/or kV adjustment per pa tient size (includes targeted exams where dose is matched to clinical indication); or iterative recon struction. DLP: 2513.18 mGy.cm COMPARISON: None available. No acute intracranial hemorrhage, midline shift or mass effect. Mild atrophy and mild small vessel disease. Ventricles: Normal size with no hydrocephalus. Paranasal sinuses: As visualized are clear. Mastoid air cells: Well pneumatized. Calvarium and scalp: Skull is intact with no soft tissue edema or swelling. CT/CT head wo con* [id number] IMPRESSION: 1. No acute intracranial hemorrhage or edema. 2. Mild atrophy and mild small vessel ischemic disease.
--- NOTE | 2023-10-07 11:52 | ED_ITS ---
HPI - Weakness 2 General: Chief complaint: Weakness Stated complaint: Dr. Hoyt sent over. Fell yesterday Time Seen by Provider: 10/07/23 11:05 History of Present Illness: 77-year-old female presents emergency ro om with generalized weakness. She is diagnosed with squamous cell C of the vulva recently is undergoing treatment she has missed couple treatments because of complications initial treatments with leukocytopenia. She has been very weak and has fallen several times recently was referred here because of the falls. Initially family is asking about hospice but did not understand that on hospice care focuses on comfort and we do not treat the cancer at that point. She does not lose consciousness she did strike her head when she fell a couple of days ago. No vomiting no diarrhea denies chest pain does have some suprapubic discomfort. No diarrhea or dysuria Associated symptoms: Reports dysuria; Denies chest pain, chills or fever(s) Review of Systems 2 Const: Reports: fatigue and malaise; Denies: fever(s) or chills Card: Denies: chest pain Resp: Reports: dyspnea GI: Denies: abdominal pain : Reports: difficulty voiding, dysuria and oliguria; Denies: urinary frequency or urinary urgency Musc: Denies: neck pain or back pain Skin/Breast: Denies: rash PFSH ED 2 PFSH: Medical History History of depression Degenerative arthritis GERD (gastroesophageal reflux disease) Hypertension Vulvar malignant neoplasm Surgical History History of vulvectomy (10/24/22) Radical vulvectomy with bilateral inguinofemoral lymphadenectomy History of neck surgery drainage of abscess Family History Mother Hypertension Sister Parkinson disease Father Heart disease Brother Prostate cancer Denies family history of Colon cancer Ovarian cancer Diabetes Hyperlipidemia Breast cancer Uterine cancer Thyroid disease Stroke Social History Smoking and tobacco/nicotine status: never used tobacco/nicotine Alcohol intake: never Physical Exam 2 Const: GENERAL APPEARANCE: cooperative ORIENTATION/CONSCIOUSNESS: Yes awake, Yes oriented to person, Yes oriented to place and Yes oriented to time HENMT: COMMON NORMALS: normocephalic, atraumatic and hearing grossly normal bilaterally HEAD & SCALP: normocephalic and atraumatic Resp: COMMON NORMALS: normal respiratory effort, No retractions and No use of accessory muscles AUSCULTATION: rhonchi Cardio: COMMON NORMALS: regular rate, regular rhythm and No murmurs present (Cardio) RATE: regular rate RHYTHM: regular rhythm GI: COMMON NORMALS: No hepatosplenomegaly present AUSCULTATION: Yes normoactive bowel sounds PALPATION: Yes Tenderness to palpation present (GI), No Guarding due to palpation present (GI) and Yes No hepatosplenomegaly present OTHER: Bladder palpable at the midline just below the umbilicus : OTHER: Examination of the perineum and rectum is still intact and identifiable large portions of the remainder of the perineum are unrecognizable normal anatomical landmarks large cratered area in the right groin most of the right vulva are no longer present cannot identify urethral meatus. At initial preparation for perineal exam by nursing staff the closing was soaked in urine caked in feces Extremity: COMMON NORMALS: normal to inspection, capillary refill normal, no clubbing, cyanosis or edema, no calf tenderness and no pedal edema Neuro: SENSORIUM/ORIENTATION: Yes oriented to person, Yes oriented to place and Yes oriented to time Skin: COMMON NORMALS: no rashes or lesions noted GENERAL SKIN EXAM: no rashes or lesions noted Course 2 Vital Signs: Vital signs: Vital Signs Temperature 98.2 F 10/07/23 09:56 Pulse Rate 86 10/07/23 18:24 Respiratory Rate 14 10/07/23 15:04 Blood Pressure 120/67 10/07/23 18:24 Pulse Oximetry 99 10/07/23 18:24 Oxygen Delivery Me thod Room Air 10/07/23 09:56 MDM - Weakness Medical Decision Making Bladder scan shows 1100+ retained urine patient is having overflow incontinence. Surprisingly she is not in acute renal failure at this point. Suspect she does have an infection she also has moderate burden PE. Discussed with Dr. 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 He does have the option of changing to immune therapy and family at this point is wishing to continue treatment. They had expressed interest in hospice to the nurse but they had understood it to be an increased level of service while they were still treating cancer did not realize that it was intended for comfort care once treatment was stopped. Will refer for placement for suprapubic catheter. We are initially going to start heparin however when we dug into [facility] assess that we hold they were planning to place a suprapubic catheter as soon as she arrived Lab Data 10/07/23 12:55 10/07/23 12:[address] 10/07/23 11:32 IMPRESSION: No acute facial bone fracture. Head CT 10/07/23 11:32 IMPRESSION: 1. No acute intracranial hemorrhage or edema. 2. Mild atrophy and mild small vessel ischemic disease. Ribs X-Ray 10/07/23 12:33 IMPRESSION: Multiple old healed rib fractures. Potential acute nondisplaced right fifth rib fracture. Chest CTA 10/07/23 13:15 IMPRESSION: 1. Moderate bilateral pulmonary artery pulmonary embolic burden. 2. Mediastinal lymph and hilar lymphadenopathy. Lymphadenopathy was also described on 04/30/2023 PET/CT and thought to be metastatic. 3. New LEFT upper lobe pulmonary nodule measuring 1.0 cm. Metastatic site is not excluded. 4. Large portion of the stomach is intrathoracic. Laboratory Results WBC 10.12 10^3/uL (3.29-11.43) 10/07/23 12:55 RBC 3.23 10^6/uL (3.85-5.65) L 10/07/23 12:55 Hgb 9.90 g/dL (11.27-16.99) L 10/07/23 12:55 Hct 30.7 % (36-47) L 10/07/23 12:55 MCV 95.0 fl (85-98) 10/07/23 12:55 MCH 30.7 pg (27-33) 10/07/23 12:55 MCHC 32.2 g/dL (30-55) 10/07/23 12:55 RDW 14.8 % (12.1-15.1) 10/07/23 12:55 Plt Count 189 10^3/cmm (157-399) 10/07/23 12:55 MPV 8.9 fL (7.4-10.4) 10/07/23 12:55 Neut % (Auto) 80.5 % 10/07/23 12:55 Lymph % (Auto) 7.7 % 10/07/23 12:55 Benton % (Auto) 10.4 % 10/07/23 12:55 Eos % (Auto) 0.1 % 10/07/23 12:55 Baso % (Auto) 0.3 % 10/07/23 12:55 Neut # (Auto) 8.15 10^3/uL (1.8-7.7) H 10/07/23 12:55 Lymph # (Auto) 0.8 10^3/uL (0.8-4.8) 10/07/23 12:55 Benton # (Auto) 1.1 10^3/uL (0.2-0.9) H 10/07/23 12:55 Eos # (Auto) 0.0 10^3/uL (0.0-0.8) 10/07/23 12:55 Baso # (Auto) 0.0 10^3/uL (0.0-0.1) 10/07/23 12:55 Nucleated RBC % (auto) 0 % 10/07/23 12:55 Nucleated RBCs # 0.0 /100WBC 10/07/23 12:55 PT 17.30 SECONDS (12.1-14.9) H 10/07/23 12:55 INR 1.37 (0.8-1.2) H 10/07/23 12:55 APTT 39.8 SECONDS (23.9-36.7) H 10/07/23 12:55 Sodium 136 mmol/L (136-145) 10/07/23 12:55 Potassium 3.4 mmol/L (3.5-5.1) L 10/07/23 12:55 Chloride 93 mmol/L (98-107) L 10/07/23 12:55 Carbon Dioxide 26 mmol/L (22-29) 10/07/23 12:55 Anion Gap 20.4 (5-19) H 10/07/23 12:55 BUN 20 mg/dL (8-23) 10/07/23 12:55 Creatinine 0.7 mg/dL (0.5-0.9) 10/07/23 12:55 GFR Calculation Not Reportable 10/07/23 12:55 Glucose 120 mg/dL (65-115) H 10/07/23 12:55 Calculated Osmolality 286 mOsm/kg (285-295) 10/07/23 12:55 Calcium 9.4 mg/dL (8.5-10.5) 10/07/23 12:55 Total Bilirubin 1.3 mg/dL (0.15-1.2) H 10/07/23 12:55 AST 11 U/L (0-32) 10/07/23 12:55 ALT 9 U/L (0-33) 10/07/23 12:55 Alkaline Phosphatase 60 U/L (35-105) 10/07/23 12:55 Creatine Kinase 23 U/L (26-192) L 10/07/23 12:55 Total Protein 7.2 g/dL (6.6-8.7) 10/07/23 12:55 Albumin 3.4 g/dL (3.5-5.2) L 10/07/23 12:55 Globulin 3.8 g/dL (1.3-4.6) 10/07/23 12:55 Lipase 6 U/L (13-60) L 10/07/23 12:55 All radiology interpretation(s) finalized by discharge Discharge Plan Discharge Patient Disposition: Xfer Short-Term Hosp Clinical Impression: Malignant neoplasm of overlapping sites of vulva, Acute urinary retention, Pulmonary embolism Condition: Stable Referrals: Ira Cowan DO [Primary Care Provider] - Coding Level of Care Code ED Hair Colorist for Francisco Pope
--- NOTE | 2023-10-07 12:33 | XR_ITS ---
WS: [id number] XR ribs RT mn 3V w CXR1V [id number] REASON FOR EXAM: trauma FINDINGS: Old healed or healing right rib fractures 7 through 11. Possible nondisplaced acute right fifth rib fracture posteriorly. No pneumothorax or pleural fluid. XR/XR ribs RT mn 3V w CXR1V [id number] IMPRESSION: Multiple old healed rib fractures. Potential acute nondisplaced right fifth rib fracture.
[2023-10-07] MEDS: sodium chloride 0.9% 1,000 ML 999 ML IV (12:53)
[2023-10-07] MEDS: ondansetron 2 mg/ML SDV 2 mL 4 MG IVP (12:55)
[2023-10-07] MEDS: morphine 4 mg/mL SDV 1 mL 2 MG IVP (12:56)
[2023-10-07 13:00] LABS: Basophils % 0.3 %; Eosinophils % 0.1 %; Hematocrit 30.7 % (36-47); Lymphocytes # 0.8 10^3/uL (0.8-4.8); Lymphocytes % 7.7 %; Mean Corpuscular HGB Conc 32.2 g/dL (30-55); Mean Corpuscular Hemoglobin 30.7 pg (27-33); Mean Platelet Volume 8.9 fL (7.4-10.4); Monocytes # 1.1 10^3/uL (0.2-0.9); Monocytes % 10.4 %; Neutrophils # 8.15 10^3/uL (1.8-7.7); Neutrophils % 80.5 %; Nucleated Red Blood Cells % 0 %; Platelet Count 189 10^3/cmm (157-399); Red Blood Count 3.23 10^6/uL (3.85-5.65); Red Cell Distribution Width 14.8 % (12.1-15.1); White Blood Count 10.12 10^3/uL (3.29-11.43)
--- NOTE | 2023-10-07 13:15 | CT_ITS ---
WS: [id number] CT CHEST ANGIOGRAPHY WITH REFORMATS HISTORY: rib fracctures - dyspnea TECHNIQUE: Contiguous axial images are obtained through the chest during arterial injection of intrav enous contrast. Images are reconstructed to evaluate the pulmonary arteries. MIP imaging also reviewe d. All CT scans at [facility] use at least one of these dose optimization techniques: automat ed exposure control; mA and/or kV adjustment per patient size (includes targeted exams where dose is matched to clinical indication); or iterative reconstruction. CONTRAST: Omnipaque 350; 100 mL IV. DLP: 272.51 mGy.cm COMPARISON: None available. Good contrast opacification of the pulmonary arteries. Acute occlusive DVT noted in the proximal RIGH T upper lobe pulmonary artery. There is a smaller burden in the distal RIGHT main pulmonary artery. D istal PE in the RIGHT lower lobe pulmonary artery. LEFT main pulmonary artery is well opacified. Mode rate pulmonary burden beginning in the subsegmental branches of LEFT lower lobe with PE extending int o several of the subsegmental branches. No definite PE in the LEFT upper lobe pulmonary artery. Mild atherosclerosis aorta. Lungs are hyperinflated. Bilateral mosaic attenuation and groundglass att enuation. There are few scattered pulmonary nodules and opacifications. Largest nodule 10 mm LEFT upp er lobe. Benign granuloma posterior RIGHT lower lobe. Mild pleural thickening at the LEFT lung base. Hilar and mediastinal adenopathy. Largest node at 1.7 cm precarinal. High RIGHT paratracheal lymph no de 1.4 cm. AP and bilateral hilar lymph nodes. Largest hilar lymph node on the LEFT 1.3 cm. Moderate-sized hiatal hernia. Large portion of the stomach is intrathoracic. Hepatic and splenic gran ulomata. Increase in thoracic kyphosis. No osteoblastic or osteolytic bone disease. CT/CT angio chest PE protcl [id number] IMPRESSION: 1. Moderate bilateral pulmonary artery pulmonary embolic burden. 2. Mediastinal lymph and hilar lymphadenopathy. Lymphadenopathy was also descr ibed on 04/30/2023 PET/CT and thought to be metastatic. 3. New LEFT upper lobe pulmonary nodule measuring 1.0 cm. Metastatic site is n ot excluded. 4. Large portion of the stomach is intrathoracic.
[2023-10-07 13:23] LABS: Alanine Aminotransferase 9 U/L (0-33); Albumin Level 3.4 g/dL (3.5-5.2); Alkaline Phosphatase 60 U/L (35-105); Anion Gap 20.4 (5-19); Aspartate Amino Transferase 11 U/L (0-32); Blood Urea Nitrogen 20 mg/dL (8-23); Calcium 9.4 mg/dL (8.5-10.5); Carbon Dioxide 26 mmol/L (22-29); Chloride 93 mmol/L (98-107); Creatine Phosphokinase 23 U/L (26-192); Creatinine Clr Calc Pharmacy 51.5616; Globulin 3.8 g/dL (1.3-4.6); Glucose 120 mg/dL (65-115); Lipase 6 U/L (13-60); Osmolality Calculated 286 mOsm/kg (285-295); Potassium 3.4 mmol/L (3.5-5.1); Sodium 136 mmol/L (136-145); Total Bilirubin 1.3 mg/dL (0.15-1.2); Total Protein 7.2 g/dL (6.6-8.7)
[2023-10-07] MEDS: iohexol 350 mg/mL 500 mL Btl (per mL) IV (13:59)
[2023-10-07] MEDS: morphine 4 mg/mL SDV 1 mL IVP (15:04)
[2023-10-07] MEDS: piperacillin-tazobactam 3.375 GM in sodium chloride 0.9% (plus) 50 ML IV (15:07)
[2023-10-07 15:36] LABS: INR 1.37 (0.8-1.2); Partial Thromboplastin Time 39.8 SECONDS (23.9-36.7)
== END 2023-10-07 17:30 | disposition short-term general hospital (02) ==
PROVIDERS: Emergency Provider Family Medicine; PCP Family Medicine
DX: G62.0 Drug-induced polyneuropathy (principal); T45.1X5A Adverse effect of antineoplastic and immunosuppressive drugs, initial encounter; C51.8 Malignant neoplasm of overlapping sites of vulva; R33.9 Retention of urine, unspecified; I26.99 Other pulmonary embolism without acute cor pulmonale
CPT/HCPCS: 36415; 51798; 70450; 70486; 71101; 71275; 80053; 82550; 83690; 85025; 85610; 85730; 93005; 96365; 96375; 96376; 99285; J2270; J2405; J2543; J7030; Q9967

== ENCOUNTER 2023-10-14 15:10 | Emergency (ER) | payer MEDICARE, MEDICAID, SELFPAY ==
[2023-10-14 15:12] VITALS: BP 128/82; PULSE 106; RESP 20; TEMP 36.8; O2SAT 92; BMI 22.8
--- NOTE | 2023-10-14 15:14 | ED_ITS ---
Documented by User: Darron Monte DO 10/15/23 05:52 HPI - Abdominal Pain 2 General: Chief Complaint: Weakness Stated Complaint: abd pain Time Seen by Provider: 10/14/23 15:11 History of Present Illness: 77-year-old female with a history of vul alex squamous CA. Patient is complaining of abdominal pain and constipation. She denies any vomiting. No HEENT hematemesis coffee-ground emesis. Denies fever sweats or chills. Patient describes having aching all over. Denies chest pain or shortness of breath. Patient recently seen in the ER transferred out to urology with urinary retention. There is significant distortion of the anatomy of the perineum and the meatus was not identifiable she was transferred for a suprapubic catheter placement Associated Symptoms: Reports constipation and nausea; Denies chills, dysuria, fever(s), hematochezia, hematemesis, melena and vomiting Related Data Home Medications Medication Instructions Recorded Confirmed Lactobacillus acidophilus 10 mg PO DAILY 01/14/23 10/07/23 (Acidophilus capsule) amlodipine 2.5 mg tablet 2.5 mg PO DAILY 10/07/23 10/07/23 lidocaine-prilocaine 2.5 %-2.5 % See Rx Instructions .Route .COMPLEX 10/07/23 10/07/23 topical cream lisinopril 20 1 tab PO DAILY 10/07/23 10/07/23 mg-hydrochlorothiazide 12.5 mg tablet omeprazole 20 mg capsule,delayed 20 mg PO BID 10/07/23 10/07/23 release Previous Rx's Medication Instructions Recorded prochlorperazine maleate 10 mg 10 mg PO Q4H PRN Mild Nausea #30 08/20/23 tablet (Compazine) tabs oxycodone 10 mg tablet 10 mg PO Q6H PRN pain 30 days #120 09/13/23 tabs megestrol 400 mg/10 mL (40 mg/mL) 800 mg (20 mL) PO DAILY appetite 09/17/23 oral suspension #600 mL Allergies Allergy/AdvReac Type Severity Reaction Status Date / Time No Known Allergies Allergy Verified 10/07/23 10:01 Review of Systems 2 Const: Denies: fever(s) or chills Card: Denies: chest pain Resp: Denies: dyspnea GI: Reports: abdominal pain, nausea and constipation; Denies: vomiting, hematemesis, hematochezia or melena : Denies: dysuria, urinary frequency or urinary urgency Musc: Denies: neck pain or back pain Skin/Breast: Denies: rash PFSH ED 2 PFSH: Medical History History of depression Degenerative arthritis GERD (gastroesophageal reflux disease) Hypertension Vulvar malignant neoplasm Surgical History History of vulvectomy (10/24/22) Radical vulvectomy with bilateral inguinofemoral lymphadenectomy History of neck surgery drainage of abscess Family History Mother Hypertension Sister Parkinson disease Father Heart disease Brother Prostate cancer Denies family history of Colon cancer Ovarian cancer Diabetes Hyperlipidemia Breast cancer Uterine cancer Thyroid disease Stroke Social History Smoking and tobacco/nicotine status: never used tobacco/nicotine Alcohol intake: never Physical Exam 2 Const: GENERAL APPEARANCE: cooperative ORIENTATION/CONSCIOUSNESS: Yes awake, Yes oriented to person, Yes oriented to place and Yes oriented to time HENMT: COMMON NORMALS: normocephalic, atraumatic and hearing grossly normal bilaterally HEAD & SCALP: normocephalic and atraumatic Resp: COMMON NORMALS: normal respiratory effort, No retractions, No use of accessory muscles and clear to auscultation bilaterally AUSCULTATION: clear to auscultation bilaterally Cardio: COMMON NORMALS: regular rate, regular rhythm and No murmurs present (Cardio) RATE: regular rate RHYTHM: regular rhythm GI: COMMON NORMALS: Soft to palpation and No hepatosplenomegaly present A USCULTATION: Yes normoactive bowel sounds PALPATION: Yes Soft to palpation, No Tenderness to palpation present (GI), No Guarding due to palpation present (GI) and Yes No hepatosplenomegaly present OTHER: Suprapubic catheter in place urine output appears clear Extremity: COMMON NORMALS: normal to inspection, capillary refill normal, no clubbing, cyanosis or edema, no calf tenderness and no pedal edema Neuro: SENSORIUM/ORIENTATION: Yes oriented to person, Yes oriented to place and Yes oriented to time Skin: COMMON NORMALS: no rashes or lesions noted GENERAL SKIN EXAM: no rashes or lesions noted Course 2 Vital Signs: Vital signs: Vital Signs Temperature 98.3 F 10/14/23 15:12 Pulse Rate 92 10/14/23 21:58 Respiratory Rate 25 H 10/14/23 21:58 Blood Pressure 131/80 10/14/23 21:58 Pulse Oximetry 90 10/14/23 21:58 Oxygen Delivery Me thod Room Air 10/14/23 21:58 MDM - Abdominal Pain Medical Decision Making CT shows pelvic abscess associated with previous small bowel resection. No leukocytosis. Very strongly foul-smelling discharge from the wound. Patient is very weak. She would like to continue aggressive treatment at this point. We have made contact with [facility] to talk to Dr. Powers who is the surgeon who originally did her resection from the vulvar squamous cell CA. We are waiting on a phone call back. Care signed out to Dr. Law at change of shift. See final notes for diagnosis and disposition. Patient care was transitioned to ms at shift change. About 5 minutes later Willie in [place] contacted ms. I spoke with Dr. Candido beck who is the patient's surgeon who feels like likely this patient is now more of a hospice type candidate. I then evaluated the patient and spoke with the family and the patient is open to talks about hospice, but the is insistent that they need to go and speak with the surgeon first. At this point I think she is too sick to go home on oral antibiotics. She does complain of constipation. Patient is excepted to the emergency room by Dr. Desouza. There were no beds and Dr. Powers recommends ER to ER transfer. Medical Records I reviewed the patient's medical records. Lab Data I reviewed the patient's lab results. 10/14/23 15:34 10/14/23 15:34 Labs/Radiology: Radiology Impressions Abdomen/Pelvis CT 10/14/23 15:23 IMPRESSION: 1. Postoperative changes are present in the vulvovaginal region. There are complex peripherally enhancing fluid collections with septations in the region of postoperative change measuring up to 4.6 cm in the AP dimension concerning for abscess formations. 2. Air-fluid levels are present in the expected location of the lower uterine segment/vaginal junction as well. Differential includes postoperative fluid collection, hemorrhagic products, and/or abscess formations. 3. The bladder wall is thickened and ill-defined with edema in the pericystic fat consistent with acute cystitis. ADDENDUM: 10/14/23 852 ADDENDUM: CRITICAL RESULT: The study was personally discussed on the telephone with DARRON Senior on 10/14/2023 5:38 PM CDT. The results were understood and acknowledged. The endometrial stripe is thickened measuring 2.2 cm and heterogeneous. Findings raise concern for endometritis. career education teacher consult recommended. Laboratory Results WBC 9.26 10^3/uL (3.29-11.43) 10/14/23 15:34 RBC 3.43 10^6/uL (3.85-5.65) L 10/14/23 15:34 Hgb 10.60 g/dL (11.27-16.99) L 10/14/23 15:34 Hct 32.9 % (36-47) L 10/14/23 15:34 MCV 95.9 fl (85-98) 10/14/23 15:34 MCH 30.9 pg (27-33) 10/14/23 15:34 MCHC 32.2 g/dL (30-55) 10/14/23 15:34 RDW 15.0 % (12.1-15.1) 10/14/23 15:34 Plt Count 307 10^3/cmm (157-399) 10/14/23 15:34 MPV 9.2 fL (7.4-10.4) 10/14/23 15:34 Neut % (Auto) 77.8 % 10/14/23 15:34 Lymph % (Auto) 11.4 % 10/14/23 15:34 [place] % (Auto) 8.2 % 10/14/23 15:34 Eos % (Auto) 1.4 % 10/14/23 15:34 Baso % (Auto) 0.3 % 10/14/23 15:34 Neut # (Auto) 7.20 10^3/uL (1.8-7.7) 10/14/23 15:34 Lymph # (Auto) 1.1 10^3/uL (0.8-4.8) 10/14/23 15:34 [place] # (Auto) 0.8 10^3/uL (0.2-0.9) 10/14/23 15:34 Eos # (Auto) 0.1 10^3/uL (0.0-0.8) 10/14/23 15:34 Baso # (Auto) 0.0 10^3/uL (0.0-0.1) 10/14/23 15:34 Nucleated RBC % (auto) 0 % 10/14/23 15:34 Nucleated RBCs # 0.0 /100WBC 10/14/23 15:34 Sodium 135 mmol/L (136-145) L 10/14/23 15:34 Potassium 3.5 mmol/L (3.5-5.1) 10/14/23 15:34 Chloride 99 mmol/L (98-107) 10/14/23 15:34 Carbon Dioxide 24 mmol/L (22-29) 10/14/23 15:34 Anion Gap 15.5 (5-19) 10/14/23 15:34 BUN 9 mg/dL (8-23) 10/14/23 15:34 Creatinine 0.5 mg/dL (0.5-0.9) 10/14/23 15:34 GFR Calculation Not Reportable 10/14/23 15:34 Glucose 111 mg/dL (65-115) 10/14/23 15:34 Calculated Osmolality 279 mOsm/kg (285-295) L 10/14/23 15:34 Calcium 8.7 mg/dL (8.5-10.5) 10/14/23 15:34 Total Bilirubin 0.7 mg/dL (0.15-1.2) 10/14/23 15:34 AST 20 U/L (0-32) 10/14/23 15:34 ALT 18 U/L (0-33) 10/14/23 15:34 Alkaline Phosphatase 61 U/L (35-105) 10/14/23 15:34 Creatine Kinase 23 U/L (26-192) L 10/14/23 15:34 Total Protein 6.6 g/dL (6.6-8.7) 10/14/23 15:34 Albumin 2.9 g/dL (3.5-5.2) L 10/14/23 15:34 Globulin 3.7 g/dL (1.3-4.6) 10/14/23 15:34 Lipase 9 U/L (13-60) L 10/14/23 15:34 Urine Color [place] (Yellow) A 10/14/23 17: Urine Appearance Clear (CLEAR) 10/14/23 17: Urine pH 6.5 (5-7) 10/14/23 17:29 Ur Specific [place] 1.068 (1.005-1.030) H 10/14/23 17:29 Urine Protein 2+ (Negative) A 10/14/23 17: Urine Glucose (UA) Negative (Normal) 10/14/23 17: Urine Ketones Negative (Negative) 10/14/23 17: Urine Blood 3+ (Negative) A 10/14/23 17: Urine Nitrate Negative (Negative) 10/14/23 17: Urine Bilirubin Negative (Negative) 10/14/23 17: Urine Urobilinogen 1.0 mg/dL (Negative) 10/14/23 17: Ur Leukocyte Esterase Negative (Negative) 10/14/23 17: Urine RBC >100 /hpf (0-2) H 10/14/23 17:29 Urine WBC 21-50 /hpf (0-5) H 10/14/23 17:29 Ur Squamous Epith Cells 0-5 /hpf (0-5) 10/14/23 17: Amorphous Sediment Not Reportable 10/14/23 17:29 Urine Bacteria None seen /hpf (NONE) 10/14/23 17: Hyaline Casts 0.40 /lpf 10/14/23 17:29 Discharge Plan Discharge Patient Disposition: Xfer Short-Term Hosp Clinical Impression: Malignant neoplasm of overlapping sites of vulva, Abscess of pelvis Condition: Stable Discharge Orders: Transfer Out of Facility (Order); Ordered 10/14/23 Ordered By: Tabitha Law Referrals: Ira Cowan DO [Primary Care Provider] - Coding Level of Care Code ED Hairspring Truing Inspector for Chg Fwd Documented by User: Tabitha Law MD 10/14/23 19:10 HPI - Abdominal Pain 2 General: Chief Complaint: Weakness Stated Complaint: abd pain Time Seen by Provider: 10/14/23 15:11 Related Data Home Medications Medication Instructions Recorded Confirmed Lactobacillus acidophilus 10 mg PO DAILY 01/14/23 10/07/23 (Acidophilus capsule) amlodipine 2.5 mg tablet 2.5 mg PO DAILY 10/07/23 10/07/23 lidocaine-prilocaine 2.5 %-2.5 % See Rx Instructions .Route .COMPLEX 10/07/23 10/07/23 topical cream lisinopril 20 1 tab PO DAILY 10/07/23 10/07/23 mg-hydrochlorothiazide 12.5 mg tablet omeprazole 20 mg capsule,delayed 20 mg PO BID 10/07/23 10/07/23 release Previous Rx's Medication Instructions Recorded prochlorperazine maleate 10 mg 10 mg PO Q4H PRN Mild Nausea #30 08/20/23 tablet (Compazine) tabs oxycodone 10 mg tablet 10 mg PO Q6H PRN pain 30 days #120 09/13/23 tabs megestrol 400 mg/10 mL (40 mg/mL) 800 mg (20 mL) PO DAILY appetite 09/17/23 oral suspension #600 mL Allergies Allergy/AdvReac Type Severity Reaction Status Date / Time No Known Allergies Allergy Verified 10/07/23 10:01 [facility] ED 2 PFSH: Medical History History of depression Degenerative arthritis GERD (gastroesophageal reflux disease) Hypertension Vulvar malignant neoplasm Surgical History History of vulvectomy (10/24/22) Radical vulvectomy with bilateral inguinofemoral lymphadenectomy History of neck surgery drainage of abscess Family History Mother Hypertension Sister Parkinson disease Father Heart disease Brother Prostate cancer Denies family history of Colon cancer Ovarian cancer Diabetes Hyperlipidemia Breast cancer Uterine cancer Thyroid disease Stroke Social History Smoking and tobacco/nicotine status: never used tobacco/nicotine Alcohol intake: never Course 2 Vital Signs: Vital signs: Vital Signs Temperature 98.3 F 10/14/23 15:12 Pulse Rate 92 10/14/23 21:58 Respiratory Rate 25 H 10/14/23 21:58 Blood Pressure 131/80 10/14/23 21:58 Pulse Oximetry 90 10/14/23 21:58 Oxygen Delivery Me thod Room Air 10/14/23 21:58 MDM - Abdominal Pain Medical Decision Making Patient care was transitioned to ms at shift change. About 5 minutes later Willie in [place] contacted ms. I spoke with Dr. Candido beck who is the patient's surgeon who feels like likely this patient is now more of a hospice type candidate. I then evaluated the patient and spoke with the family and the patient is open to talks about hospice, but the is insistent that they need to go and speak with the surgeon first. At this point I think she is too sick to go home on oral antibiotics. She does complain of constipation. Patient is excepted to the emergency room by Dr. Desouza. There were no beds and Dr. Powers recommends ER to ER transfer. Lab Data 10/14/23 15:34 10/14/23 15:34 Labs/Radiology: Radiology Impressions Abdomen/Pelvis CT 10/14/23 15:23 IMPRESSION: 1. Postoperative changes are present in the vulvovaginal region. There are complex peripherally enhancing fluid collections with septations in the region of postoperative change measuring up to 4.6 cm in the AP dimension concerning for abscess formations. 2. Air-fluid levels are present in the expected location of the lower uterine segment/vaginal junction as well. Differential includes postoperative fluid collection, hemorrhagic products, and/or abscess formations. 3. The bladder wall is thickened and ill-defined with edema in the pericystic fat consistent with acute cystitis. ADDENDUM: 10/14/23 [id number] ADDENDUM: CRITICAL RESULT: The study was personally discussed on the telephone with DARRON Senior on 10/14/2023 5:38 PM CDT. The results were understood and acknowledged. The endometrial stripe is thickened measuring 2.2 cm and heterogeneous. Findings raise concern for endometritis. career education teacher consult recommended. Laboratory Results WBC 9.26 10^3/uL (3.29-11.43) 10/14/23 15:34 RBC 3.43 10^6/uL (3.85-5.65) L 10/14/23 15:34 Hgb 10.60 g/dL (11.27-16.99) L 10/14/23 15:34 Hct 32.9 % (36-47) L 10/14/23 15:34 MCV 95.9 fl (85-98) 10/14/23 15:34 MCH 30.9 pg (27-33) 10/14/23 15:34 MCHC 32.2 g/dL (30-55) 10/14/23 15:34 RDW 15.0 % (12.1-15.1) 10/14/23:34 Plt Count 307 10^3/cmm (157-399) 10/14/23:34 MPV 9.2 fL (7.4-10.4) 10/14/23 15:34 Neut % (Auto) 77.8 % 10/14/23:34 Lymph % (Auto) 11.4 % 10/14/23 15:34 [place] % (Auto) 8.2 % 10/14/23 15:34 Eos % (Auto) 1.4 % 10/14/23:34 Baso % (Auto) 0.3 % 10/14/23:34 Neut # (Auto) 7.20 10^3/uL (1.8-7.7) 10/14/23 15:34 Lymph # (Auto) 1.1 10^3/uL (0.8-4.8) 10/14/23:34 [place] # (Auto) 0.8 10^3/uL (0.2-0.9) 10/14/23 15:34 Eos # (Auto) 0.1 10^3/uL (0.0-0.8) 10/14/23:34 Baso # (Auto) 0.0 10^3/uL (0.0-0.1) 10/14/23:34 Nucleated RBC % (auto) 0 % 10/14/23:34 Nucleated RBCs # 0.0 /100WBC 10/14/23:34 Sodium 135 mmol/L (136-145) L 10/14/23:34 Potassium 3.5 mmol/L (3.5-5.1) 10/14/23 15:34 Chloride 99 mmol/L (98-107) 10/14/23 15:34 Carbon Dioxide 24 mmol/L (22-29) 10/14/23 15:34 Anion Gap 15.5 (5-19) 10/14/23 15:34 BUN 9 mg/dL (8-23) 10/14/23 15:34 Creatinine 0.5 mg/dL (0.5-0.9) 10/14/23 15:34 GFR Calculation Not Reportable 10/14/23 15:34 Glucose 111 mg/dL (65-115) 10/14/23 15:34 Calculated Osmolality 279 mOsm/kg (285-295) L 10/14/23 15:34 Calcium 8.7 mg/dL (8.5-10.5) 10/14/23 15:34 Total Bilirubin 0.7 mg/dL (0.15-1.2) 10/14/23 15:34 AST 20 U/L (0-32) 10/14/23 15:34 ALT 18 U/L (0-33) 10/14/23 15:34 Alkaline Phosphatase 61 U/L (35-105) 10/14/23 15:34 Creatine Kinase 23 U/L (26-192) L 10/14/23 15:34 Total Protein 6.6 g/dL (6.6-8.7) 10/14/23 15:34 Albumin 2.9 g/dL (3.5-5.2) L 10/14/23 15:34 Globulin 3.7 g/dL (1.3-4.6) 10/14/23 15:34 Lipase 9 U/L (13-60) L 10/14/23 15:34 Urine Color [place] (Yellow) A 10/14/23 17:29 Urine Appearance Clear (CLEAR) 10/14/23 17:29 Urine pH 6.5 (5-7) 10/14/23 17:29 Ur Specific [place] 1.068 (1.005-1.030) H 10/14/23 17:29 Urine Protein 2+ (Negative) A 10/14/23 17:29 Urine Glucose (UA) Negative (Normal) 10/14/23 17:29 Urine Ketones Negative (Negative) 10/14/23 17:29 Urine Blood 3+ (Negative) A 10/14/23 17:29 Urine Nitrate Negative (Negative) 10/14/23 17: Urine Bilirubin Negative (Negative) 10/14/23 17:29 Urine Urobilinogen 1.0 mg/dL (Negative) 10/14/23 17:29 Ur Leukocyte Esterase Negative (Negative) 10/14/23 17:29 Urine RBC >100 /hpf (0-2) H 10/14/23 17:29 Urine WBC 21-50 /hpf (0-5) H 10/14/23 17:29 Ur Squamous Epith Cells 0-5 /hpf (0-5) 10/14/23 17:29 Amorphous Sediment Not Reportable 10/14/23 17:29 Urine Bacteria None seen /hpf (NONE) 10/14/23 17:29 Hyaline Casts 0.40 /lpf 10/14/23 17:29 All radiology interpretation(s) finalized by discharge Discharge Plan Discharge Patient Disposition: Xfer Short-Term Hosp Clinical Impression: Malignant neoplasm of overlapping sites of vulva, Abscess of pelvis Condition: Stable Discharge Orders: Transfer Out of Facility (Order); Ordered 10/14/23 Ordered By: Tabitha Law Referrals: Ira Cowan DO [Primary Care Provider] - Coding Level of Care Code ED Hairspring Truing Inspector for Francisco Pope
--- NOTE | 2023-10-14 15:23 | CTR_ITS ---
PROCEDURE INFORMATION: Exam: CT Abdomen And Pelvis With Contrast Exam date and time: 10/14/2023 4:37 PM Age: 77 years old Clinical indication: Abdominal tenderness; Prior surgery; Surgery date: 6+ months; Surgery type: Vulvectomy; Additional info: Abd pain TECHNIQUE: Imaging protocol: Computed tomography of the abdomen and pelvis with contrast. Radiation optimization: All CT scans at this facility use at least one of these dose optimization techniques: automated exposure control; mA and/or kV adjustment per patient size (includes targeted exams where dose is matched to clinical indication); or iterative reconstruction. Contrast material: OMNI 350; Contrast volume: 100 ml; Contrast route: INTRAVENOUS (IV); COMPARISON: PT PET skull to thigh SUBS [id number] 04/30/2023 10:00 AM RADIATION DOSE METRICS: Total DLP (mGy-cm): 674 FINDINGS: Tubes, catheters and devices: Percutaneous bladder catheter. The bladder wall is thickened and ill-defined. Edema is present in the pericystic fat. Pleural spaces: Small bilateral pleural effusions. Diaphragm: Large hiatal hernia. Liver: Normal. No mass. Gallbladder and biliary ducts: There are fat containing stones in the gallbladder. Pancreas: Normal. No ductal dilation. Spleen: Normal. No splenomegaly. Adrenal glands: Normal. No mass. Kidneys and ureters: Normal. No hydronephrosis. Stomach and bowel: Unremarkable. No obstruction. No mucosal thickening. Appendix: No evidence of appendicitis. Intraperitoneal space: Unremarkable. No free air. No significant fluid collection. Vasculature: Unremarkable. No abdominal aortic aneurysm. Lymph nodes: Unremarkable. No enlarged lymph nodes. Urinary bladder: See Tubes, catheters and devices finding. Reproductive: There are air-fluid levels in the expected location of the lower uterine segment/vaginal region measuring 6.0 x 2.7 cm in the transverse/AP dimensions. Postoperative changes are present in the vulvovaginal region. There are complex peripherally enhancing fluid collections with septations in the region of postoperative change measuring up to 4.6 cm in the AP dimension concerning for abscess formations. Bones/joints: Unremarkable. No acute fracture. Soft tissues: Unremarkable. CT/CT abdomen pelvis w con* [id number] IMPRESSION: 1. Postoperative changes are present in the vulvovaginal region. There are complex peripherally enhancing fluid collections with septations in the region of postoperative change measuring up to 4.6 cm in the AP dimension concerning for abscess formations. 2. Air-fluid levels are present in the expected location of the lower uterine segment/vaginal junction as well. Differential includes postoperative fluid collection, hemorrhagic products, and/or abscess formations. 3. The bladder wall is thickened and ill-defined with edema in the pericystic fat consistent with acute cystitis.
--- NOTE | 2023-10-14 15:39 | PC.NURSE ---
pt reports to ed for constipation no bm x4days. family concerned due to weakness. pt recently [facility] where suprapubic catheter placed. site is red, firm and has some dried blood around it. draining clear, yellow urine into bryant bag. patient reports in brief which is saturated with brown/yellow drainage. foul odor in room. upon further assessment patient has large wound to right groin, labia. pt reports this was just found while she was at [facility] and no one knew it was there. states it is from her radiation. he states the smell in her room is from bryant. this rn has advised him smell is coming from wound. very foul.
[2023-10-14 15:44] LABS: Basophils % 0.3 %; Eosinophils # 0.1 10^3/uL (0.0-0.8); Eosinophils % 1.4 %; Hematocrit 32.9 % (36-47); Lymphocytes # 1.1 10^3/uL (0.8-4.8); Lymphocytes % 11.4 %; Mean Corpuscular HGB Conc 32.2 g/dL (30-55); Mean Corpuscular Hemoglobin 30.9 pg (27-33); Mean Corpuscular Volume 95.9 fl (85-98); Mean Platelet Volume 9.2 fL (7.4-10.4); Monocytes # 0.8 10^3/uL (0.2-0.9); Monocytes % 8.2 %; Neutrophils % 77.8 %; Nucleated Red Blood Cells % 0 %; Platelet Count 307 10^3/cmm (157-399); Red Blood Count 3.43 10^6/uL (3.85-5.65); White Blood Count 9.26 10^3/uL (3.29-11.43)
[2023-10-14 16:00] LABS: Alanine Aminotransferase 18 U/L (0-33); Albumin Level 2.9 g/dL (3.5-5.2); Alkaline Phosphatase 61 U/L (35-105); Anion Gap 15.5 (5-19); Aspartate Amino Transferase 20 U/L (0-32); Blood Urea Nitrogen 9 mg/dL (8-23); Calcium 8.7 mg/dL (8.5-10.5); Carbon Dioxide 24 mmol/L (22-29); Chloride 99 mmol/L (98-107); Creatine Phosphokinase 23 U/L (26-192); Creatinine Clr Calc Pharmacy 49.0313; Globulin 3.7 g/dL (1.3-4.6); Glucose 111 mg/dL (65-115); Lipase 9 U/L (13-60); Osmolality Calculated 279 mOsm/kg (285-295); Potassium 3.5 mmol/L (3.5-5.1); Sodium 135 mmol/L (136-145); Total Bilirubin 0.7 mg/dL (0.15-1.2); Total Protein 6.6 g/dL (6.6-8.7)
[2023-10-14] MEDS: iohexol 350 mg/mL 500 mL Btl (per mL) IV (16:43)
[2023-10-14 17:00] VITALS: BP 125/73; PULSE 101; O2SAT 91
[2023-10-14 17:50] LABS: Charge for UA Resulting for Rev
[2023-10-14 17:54] LABS: Bilirubin Urine Negative (Negative); Blood Urine 3+ (Negative); Glucose Urine UA Negative (Normal); Ketones Urine Negative (Negative); Leukocyte Esterase Urine Negative (Negative); Nitrate Urine Negative (Negative); Protein Urine 2+ (Negative); Urine Appearance Clear (CLEAR); pH Urine 6.5 (5-7)
[2023-10-14 17:59] LABS: Bacteria Urine None Seen /hpf; RBC Urine >100 /hpf (0-2); Squamous Epithelial Cell Urine 0-5 /hpf (0-5); WBC Urine 21-50 /hpf (0-5)
[2023-10-14 18:00] VITALS: BP 114/79; PULSE 106; RESP 17; O2SAT 93
[2023-10-14 18:04] LABS: Specific Gravity, Urine 1.068 (1.005-1.030); Urine Color Orange (Yellow)
[2023-10-14 18:05] LABS: Add Urine Culture? Yes
[2023-10-14] MEDS: piperacillin-tazobactam 3.375 GM in sodium chloride 0.9% (plus) 50 ML IV (18:06)
[2023-10-14] MEDS: vancomycin 1,000 MG in sodium chloride 0.9% 250 ML 250 MG IV (18:47)
[2023-10-14 20:00] VITALS: BP 100/65; PULSE 95; RESP 22; O2SAT 91
[2023-10-14 21:29] VITALS: BP 114/77; PULSE 102; RESP 26; O2SAT 95
[2023-10-14 21:58] VITALS: BP 131/80; PULSE 92; RESP 25; O2SAT 90
== END 2023-10-14 22:40 | disposition short-term general hospital (02) ==
PROVIDERS: Family Medicine; Emergency Provider Emergency Medicine; PCP Family Medicine
DX: C51.8 Malignant neoplasm of overlapping sites of vulva (principal); N73.9 Female pelvic inflammatory disease, unspecified; I10 Essential (primary) hypertension
CPT/HCPCS: 36415; 74177; 80053; 81003; 81015; 82550; 83690; 85025; 87040; 87086; 96365; 96367; 99285; J2543; J3370; J7050; Q9967